=== PATIENT | female | born 1990 | race Caucasian/White ===

== ENCOUNTER → 2019-12-06 | Outpatient (CLI) | payer OTHER, SELFPAY ==
[2019-12-06 10:12] VITALS: BMI 21.8
[2019-12-13 17:48] LABS: HPV APTIMA, High Risk Negative (Negative); HPV Reflexed? YES, CHARGE PATIENT
== END | disposition home or self-care (01) ==
LOC: LABSPEC 12:44
PROVIDERS: PCP Family Medicine; Visit Provider Obstetrics & Gynecology
DX: Z12.4 Encounter for screening for malignant neoplasm of cervix (principal)
CPT/HCPCS: 87624; 88175; G0145

== ENCOUNTER → 2020-02-28 15:23 | Outpatient (CLI) | payer OTHER, SELFPAY ==
[2020-02-28 14:27] VITALS: BMI 23.5
[2020-02-28 15:45] LABS: Absolute Lymphocyte Count 3.03 X10^3/uL (0.83-4.51); Basophil# 0.03 X10^3/uL; Basophil% 0.3 % (0-1); Eosinophil# 0.05 X10^3/uL; Eosinophils% 0.5 % (0-5); Hematocrit 40.7 % (37-47); Lymphocyte # 3.03 X10^3/ul (4.0); Lymphocyte % 31.2 % (19-41); Mean Corp Hgb Conc 34.4 g/dL (32-36); Mean Corpuscular Hgb 29.2 pg (27.0-32.0); Mean Corpuscular Volume 84.8 fL (81-99); Mean Platelet Vol. 10.1 fl (6.2-12.0); Monocyte# 0.58 X10^3/uL; NRBC Flagged by Analyzer 0 % (0-5); Neutrophil % 61.7 % (47-70); Platelet Count 289 K/mm3 (150-450); RBC Distribution Width CV 12.2 % (11.6-14.6); RBC Distribution Width SD 37.5 fl (35.1-43.9); White Blood Count 9.7 K/mm3 (4.4-11.0)
[2020-02-28 17:04] LABS: HIV - WCH Non-Reactive (Nonreactive); Hepatitis B Surface Antigen Non-Reactive (Nonreactive); Hepatitis C Antibody Non-Reactive (Nonreactive)
[2020-02-28 17:34] LABS: Amphetamine Urine VISTA NEGATIVE (<1000 ng/mL); Barbiturate Urine VISTA NEGATIVE (< 200 ng/mL); Benzodiazepine Urine VISTA NEGATIVE (< 200 ng/mL); Cocaine Urine VISTA NEGATIVE (< 300 ng/mL); Ecstacy Urine VISTA NEGATIVE (< 500 ng/mL); Methadone Urine VISTA NEGATIVE (< 300 ng/mL); PCP Urine VISTA NEGATIVE (< 25 ng/mL); THC Urine VISTA NEGATIVE (< 50 ng/mL); Vista UDS pH Range 6
[2020-02-29 10:16] LABS: Rubella IgG Reactive (Nonreactive)
[2020-03-04 03:06] LABS: Chlamydia By Nucleic Acid AMP Negative (Negative)
[2020-03-04 12:07] LABS: Gonococcus By Nucleic Acid AMP Negative (Negative)
[2020-03-06 02:10] LABS: Rapid Plasmin Reagin (RPR) NONREACTIVE (NONREACTIVE)
== END ==
PROVIDERS: PCP Family Medicine; Referring Provider Obstetrics & Gynecology; Visit Provider Obstetrics & Gynecology
DX: Z34.00 Encounter for supervision of normal first pregnancy, unspecified trimester (principal)
CPT/HCPCS: 36415; 80307; 85025; 86592; 86703; 86762; 86803; 86850; 86900; 86901; 87086; 87088; 87340; 87491; 87591

== ENCOUNTER → 2020-06-16 09:19 | Outpatient (CLI) | payer OTHER, SELFPAY ==
[2020-05-30 09:02] VITALS: BMI 25.9
[2020-06-16 09:40] LABS: Absolute Lymphocyte Count 2.37 X10^3/uL (0.83-4.51); Absolute Neutrophil Count 8.6 X10^3/uL (2.0-7.7); Basophil# 0.04 X10^3/uL; Basophil% 0.3 % (0-1); Eosinophil# 0.07 X10^3/uL; Eosinophils% 0.6 % (0-5); Hematocrit 38.7 % (37-47); Hemoglobin 13.1 g/dL (12.0-15.0); Lymphocyte # 2.37 X10^3/ul (4.0); Lymphocyte % 20.2 % (19-41); Mean Corp Hgb Conc 33.9 g/dL (32-36); Mean Corpuscular Volume 85.6 fL (81-99); Mean Platelet Vol. 9.8 fl (6.2-12.0); Monocyte# 0.63 X10^3/uL; Monocyte% 5.4 % (0-10); NRBC Flagged by Analyzer 0 % (0-5); Neutrophil # 8.56 X10^3/uL (2.7-7.7); Neutrophil % 72.9 % (47-70); Platelet Count 288 K/mm3 (150-450); RBC Distribution Width CV 13.2 % (11.6-14.6); RBC Distribution Width SD 40.9 fl (35.1-43.9); Red Blood Count 4.52 M/mm3 (4.2-5.4); White Blood Count 11.7 K/mm3 (4.4-11.0)
[2020-06-16 09:50] LABS: Glucose Challenge Gest 1H 50g 112 mg/dL (70-140)
== END ==
PROVIDERS: PCP Family Medicine; Referring Provider Obstetrics & Gynecology; Visit Provider Obstetrics & Gynecology
DX: Z34.00 Encounter for supervision of normal first pregnancy, unspecified trimester (principal)
CPT/HCPCS: 36415; 82950; 85025

== ENCOUNTER 2020-08-07 23:19 | Inpatient (IN) | payer OTHER, SELFPAY ==
[2020-07-30 08:58] VITALS: BMI 28.5
[2020-08-07 22:34] VITALS: BMI 29.4
[2020-08-07 22:44] VITALS: BP 121/76; PULSE 83; TEMP 36.4
[2020-08-07 23:07] LABS: ROM Internal Control Test YES-OK TO RESULT pt. (Internal QC)
[2020-08-07 23:08] LABS: ROM Patient Test POSITIVE (Negative)
[2020-08-07] MEDS: Lactated Ringers 500 ML IV.SOLN. 1000 ML IV (23:35)
--- NOTE | 2020-08-07 23:56 | PCM.HPOB.BLA ---
- Problem List (1) premature rupture of membranes (PPROM) with unknown onset of labor Status: Acute (2) 33 weeks gestation of Status: Acute Comment: COVID test ordered 08/06/20 (3) ASCUS of cervix with negative high risk HPV Status: Acute Comment: repeat pap in 3 years (4) Congenital hip dysplasia Status: Acute Comment: arthroscopy done on b/l hips. Has normal range of motion. (5) Exercise-induced asthma Status: Acute Comment: Uses albuterol prn. 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: No Is patient in pain?: No Allergies No Known Allergies Allergy (Verified 07/30/20 08:58) Medications albuterol sulfate 90 mcg/actuation aerosol inhaler 1 puff INHALATION ONCE 12/06/19 [History Confirmed 07/30/20] montelukast 10 mg tablet 10 mg PO DAILY 12/06/19 [History Confirmed 07/30/20] multivitamin no.47-iron fum 27 mg-folate no.1 1 mg-dha 300 mg capsule cap PO 02/20/20 [History Confirmed 07/30/20] Last Menstral Period: 12/19/19 Zika: Zika virus screening: Negative : No PFSH PFSH Medical History Exercise-induced asthma (Acute) Congenital hip dysplasia (Acute) Surgical History H/O shoulder surgery (Acute) History of arthroscopy (Acute) Family History Father Thyroid disorder Social History (Updated 07/30/20 @ 09:[address] 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 Patient states she has had increased discharge since this morning. Since Tuesday she has had symptoms of viral gastroenteritis that have been improving but cramping started increasing tonight. She had a small amount of blood present upon wiping but no persistent bleeding. She feels good movement and is having contractions. OB Visit TESSIE Calculator Estimated Delivery Date Method Current WG Current Estimate 09/24/20 LMP (Certain) 32w 0d Other Estimates 09/20/20 Ultrasound #1 32w 4d Expected Delivery Route/Plan Labor Preferences- CB/BF classes: done labor support person: Wes labor intervention preferences: open to standard interventions pain management options preferred: try natural, but open to epidural cut cord/dad catch: cord, maybe delivery : yes PP control planned: OCPs discussed possible routes of delivery and associated risks: discussed possible delivery modalities and possible indications for each including R/B/A of , VAVD, FAVD, and CS. questions answered. special requests: none Specific Issue/Plans flu vaccine: yes tdap vaccine: yes rhogam: no LARC form signed: yes movement and labor precautions reviewed. Problem list reviewed and updated with the most current plan of care details and appropriate orders placed. Relevant counseling for the gestational age provided. Continue routine care and follow up unless otherwise noted in visit notes/problem list details Initial Weight: 120 lb Date EGA Weight BP Urine Prot Glucose FHR FuHt Pres Dilation Effaced St Visit Note 02/28/20 10w 1d 124 lb 8 oz (+4 lb 8 oz) 108/68 168 GP - CRL 38.2mm consistent with LMP. 03/31/20 14w 5d 126 lb 2 oz (+6 lb 2 oz) 104/64 Negative Negative 145 GP - PRR. No cramping or bleeding. Discussed medications for constipation. Going to [facility] 04/23 - visit moved up to week before she leaves. GP - PRR. No cramping or bleeding. Discussed medications for constipation. Going to [facility] 04/23 - visit moved up to week before she leaves. Nausea improved. 04/16/20 17w 0d 131 lb 2 oz (+11 lb 2 oz) 120/74 Negative Negative 145 GP - no cramping or bleeding. +FM. Going on vacation to [facility] next week. Anatomy US scheduled for 05/19/20 21w 5d 135 lb 8 oz (+15 lb 8 oz) 100/70 Negative Negative 155 GP - no LOF, VB, DFM, ctx. Having a girl! Name surprise. Anatomy scan normal. 05/30/20 23w 2d 137 lb 4 oz (+17 lb 4 oz) 112/70 Negative Negative 145 GP - no LOF, VB, DFM, ctx. Problem visit for LUQ pain - likely nerve pain related to stretching ribs. Discussed supportive measures. 06/16/20 25w 5d 138 lb (+18 lb) 102/76 Negative Negative 135 25 GP - no LOF, VB, DFM, ctx. Passed GCT. Hb normal. 07/03/20 28w 1d 146 lb (+26 lb) 112/64 Negative Negative 148 28 MH_No VB, LOF. Good FM. tdap, larc. 07/17/20 30w 1d 148 lb (+28 lb) 110/60 Negative Negative 140 30 Cephalic SM- no vb lof good fm no regular ctx 07/30/20 32w 0d 151 lb (+31 lb) 102/80 Negative Negative 125 32 GP - no LOF, VB, DFM, ctx. Discussed labor preferences and routes of delivery. GP - no LOF, VB, DFM, ctx. Discussed labor preferences and routes of delivery. Baby shower 08/16. ACOG First Trimester First Trimester: Desire for , Alcohol, Tobacco Cessation, Illicit/Recreational Drug/Substance Use, Intimate Partner Violence, Barriers to care, Unstable Housing, Communication Barriers, Environmental/Work Hazards, Anticipated Course of Care, Toxoplasmosis Precations, Use of Any medications, Sexual activity, Exercise, Dental Care, Sauna/Hot tub use, Seat Belt use, Childbirth classes/Hospital facilities, Travel, Indications for US and Screening for Aneuploidy; discussed Second Trimester Second Trimester: Signs and Symptoms of Labor, Selecting a care provider, Reproductive Life Planning, Care Planning, Depression/Anxiety and Intimate Partner Violence; discussed Tobacco Cessation Diagnostics Diagnostics Diagnostics Blood Type O POSITIVE 02/28/20 Antibody Screen NEGATIVE 02/28/20 Glucose 1 Hr 50 gm 112 mg/dL (70-140) 06/16/20 HIV 1&2 Antibody Non-Reactive (Nonreactive) 02/28/20 Rubella IgG Antibody Reactive (Nonreactive) 02/28/20 Hgb 13.1 g/dL (12.0-15.0) 06/16/20 Hct 38.7 % (37-47) 06/16/20 RPR NONREACTIVE (NONREACTIVE) 02/28/20 Chlamydia DNA (MARCELINA) Negative (Negative) 02/28/20 N.gonorrhoeae DNA (MARCELINA) Negative (Negative) 02/28/20 Details: HIV: Urine Culture: Sequential Screen: NIPT Screen: ROS Const Reports system reviewed and no additional complaints, except as documented Card Reports system reviewed and no additional complaints, except as documented Resp Reports system reviewed and no additional complaints, except as documented GI Reports system reviewed and no additional complaints, except as documented, Reports nausea Reports system reviewed and no additional complaints, except as documented Musc Reports system reviewed and no additional complaints, except as documented all other systems reviewed and negative Exam Const General: cooperative, healthy appearing, comfortable [facility] Head: normal to inspection Nose: external nose normal Face and sinus: normal facial exam Neck Neck: normal visual inspection, full ROM, no lymphadenopathy Thyroid: thyroid normal Chest Chest palpation & inspection: normal inspection of the chest Resp Effort & Inspection: normal respiratory effort GI Inspection: normal to inspection Palpation: soft, other (gravid uterus) Other: infant vertex and appropriate size for gestational age Other: Cervical Exam: 380/-2 Extrem General: pedal edema Results POC Urinalysis 2 Dip (Clinic) Office Urine Glucose Negative Last Edit by Nevaeh Jensen on 07/30/20 09:13 Office Urine Protein Negative Last Edit by Nevaeh Jensen on 07/30/20 09:13 Assessment & Plan Problems 1. History of tetanus, diphtheria, and acellular pertussis booster vaccination (Tdap) Z92.29 07/03/20 2. Encounter for supervision of normal first in third trimester Z34.03 PRR TESSIE 09/24/20 girl (surprise name) Spouse: Wes 3. 32 weeks gestation of Z3A.32 declines NIPT, carrier and NTD; NL anatomy 4. Exercise-induced asthma J45.990 Uses albuterol prn. 5. Congenital hip dysplasia Q65.89 arthroscopy done on b/l hips. Has normal range of motion. 6. ASCUS of cervix with negative high risk HPV R87.610 repeat pap in 3 years 29-year-old at 33 weeks 1 day presents with P PROM Admit and administer IV antibiotics of ampicillin azithromycin, Celestone given for prematurity, CBC type and screen UA and culture ordered. Recent GI illness likely viral. Will give Procardia for tocolysis unless make cervical change to 4 cm or more. Expectant management, she would may change fashion 5 cm. Consult pediatrics in the morning for prematurity. Orders UPDATE- I have seen the patient and performed any clinically relevant updates to the history and physical exam. Lucille Jacob MD
[2020-08-08] VITALS (48 sets, daily range): BP systolic 100–130; BP diastolic 58–81; PULSE 67–110; TEMP 36.4–37.3; O2SAT 93–100
[2020-08-08] MEDS: Azithromycin 250 MG Tablet 1000 MG PO (00:03)
[2020-08-08 00:07] LABS: Absolute Lymphocyte Count 3.13 X10^3/uL (0.83-4.51); Absolute Neutrophil Count 8.3 X10^3/uL (2.0-7.7); Basophil# 0.04 X10^3/uL; Basophil% 0.3 % (0-1); Eosinophil# 0.07 X10^3/uL; Eosinophils% 0.6 % (0-5); Hematocrit 37.6 % (37-47); Hemoglobin 12.6 g/dL (12.0-15.0); Lymphocyte # 3.13 X10^3/ul (4.0); Lymphocyte % 24.7 % (19-41); Mean Corp Hgb Conc 33.5 g/dL (32-36); Mean Corpuscular Hgb 27.7 pg (27.0-32.0); Mean Corpuscular Volume 82.6 fL (81-99); Mean Platelet Vol. 11.2 fl (6.2-12.0); Monocyte# 1.12 X10^3/uL; Monocyte% 8.8 % (0-10); NRBC Flagged by Analyzer 0 % (0-5); Neutrophil # 8.26 X10^3/uL (2.7-7.7); Platelet Count 273 K/mm3 (150-450); RBC Distribution Width CV 12.7 % (11.6-14.6); Red Blood Count 4.55 M/mm3 (4.2-5.4); White Blood Count 12.7 K/mm3 (4.4-11.0)
[2020-08-08] MEDS: Betamethasone/Betamethasone 30 MG/5 ML Vial 12 MG IM (00:16)
[2020-08-08 00:26] LABS: Color, Urine Yellow (Yellow); Glucose, Dipstick Normal (Normal); Ketone-Dipstick Negative (Negative); Leukocyte Esterase-Dipstick 100 /ul (Negative); Nitrite-Dipstick Negative (Negative); Occult Blood-Urine 25 /ul (Negative); Protein-Dipstick Negative (Negative); Urine Bilirubin Dipstick Negative (Negative); Urine Clarity Clear (Clear); Urine Urobilinogen Normal (Normal)
[2020-08-08] MEDS: NIFEdipine 10 MG Capsule 30 MG PO (00:35)
[2020-08-08] MEDS: 0.9% Saline Lock 10 ML Syringe IV ×4 (01:33→10:26)
[2020-08-08] MEDS: Acetaminophen 500 MG Tablet PO ×2 (04:37→13:03)
[2020-08-08] MEDS: NIFEdipine 10 MG Capsule PO ×2 (04:37→09:00)
[2020-08-08] MEDS: Lactated Ringers 1,000 ML 999 ML IV ×2 (07:32→10:30)
--- NOTE | 2020-08-08 09:17 | US_ITS ---
STUDY: SECOND AND THIRD TRIMESTER OBSTETRICAL ULTRASOUND - LIMITED REASON FOR EXAM: Female, 29 years old SROM 33.2 weeks -- check fluid and size LMP: Unknown. PRIOR ULTRASOUND: None. TECHNIQUE: Transabdominal TECHNICAL QUALITY: Adequate. FINDINGS: There is a single intrauterine fetus. The fetus is in a cephalic presentation. There is demonstrated cardiac activity with a heart rate of 140 bpm. There is a normal amniotic fluid volume. The largest amniotic fluid pocket measures 6.9 cm. The amniotic fluid index (JESUS) is 12.0 cm. The placenta is posterior in location and is not low lying. There are Grade 1 placental changes. BIOMETRY: BPD: 8.4 cm: 33 weeks, 4 days HC: 30.5 cm: 33 weeks, 6 days AC: 29.8 cm: 33 weeks, 5 days FL: 6.5 cm: 33 weeks, 4 days age by current US: 33 weeks, 4 days. TESSIE by current US: September 22, 2020. Estimated weight: 2285 grams, +/- 343 grams US/OB Limited (No Biometrics) IMPRESSION: Single intrauterine gestation 33 weeks 4 days with estimated due date September 22, 2020. Estimated weight 2285 g. Electronically Signed: Rahul Kearns MD at 10:54 EDT , Service support ,
--- NOTE | 2020-08-08 09:54 | PCM.PN.OB ---
Patient Problems: Active and Suspected Problems (Last Reviewed 07/30/20 @ 08:58 by Nevaeh Jensen) premature rupture of membranes (PPROM) with unknown onset of labor (Acute) 33 weeks gestation of (Acute) COVID test ordered 08/06/20 History of tetanus, diphtheria, and acellular pertussis booster vaccination (Tdap) (Acute) 07/03/20 Supervision of normal first (Acute) PRR TESSIE 09/24/20 girl (surprise name) Spouse: Wes (Acute) declines NIPT, carrier and NTD; NL anatomy Exercise-induced asthma (Acute) Uses albuterol prn. Congenital hip dysplasia (Acute) arthroscopy done on b/l hips. Has normal range of motion. ASCUS of cervix with negative high risk HPV (Acute) repeat pap in 3 years Subjective: patient made cervical change, will manage expectantly, stop procardia continue antibiotics - Physical Exam Vitals/I&O's: Vital Signs Temp Pulse BP Pulse Ox 98.4 F 72 104/68 98 08/08/20 07:34 08/08/20 08:41 08/08/20 08:41 08/08/20 08:41 Weight: 155 lb 13.869 oz Body Mass Index (BMI) 29.4 Intake and Output for Last 24 Hours 08/06/20 08/07/20 08/08/20 23:59 23:59 23:59 Intake Total 1320 / 1320 Output Total 1050 / 1050 Balance 270 / 270 General: Alert, Oriented x3 Microbiology Past 72 Hours 08/07/20 23:35 Mucosa - Nose SARS-CoV-2 Antigen (Rapid) - Final Laboratory Results 08/07/20 22:45: Vag Amniotic Fld Detect POSITIVE H 08/07/20 23:35: WBC 12.7 H, RBC 4.55, Hgb 12.6, Hct 37.6, MCV 82.6, MCH 27.7, MCHC 33.5, RDW Std Deviation 38.0, RDW Coeff of [place] 12.7, Plt Count 273, MPV 11.2, Immature Gran % (Auto) 0.600, Neut % (Auto) 65.0, Lymph % (Auto) 24.7, [place] % (Auto) 8.8, Eos % (Auto) 0.6, Baso % (Auto) 0.3, Absolute Neuts (auto) 8.3 H, Absolute Lymphs (auto) 3.13, Nucleated RBC % 0 08/07/20 23:35: Blood Type O POSITIVE, Antibody Screen NEGATIVE 08/08/20 00:10: Urine Color Yellow, Urine Clarity Clear, Urine pH 7.0, Ur Specific [place] 1.010, Urine Protein Negative, Urine Glucose (UA) Normal, Urine Ketones Negative, Urine Occult Blood 25 H, Urine Nitrite Negative, Urine Bilirubin Negative, Urine Urobilinogen Normal, Ur Leukocyte Esterase 100 H Current Medications Acetaminophen (Acetaminophen 500 Mg Tablet) 500 - 1,000 mg PO Q6H PRN PRN PRN Reason: Pain Score 1-3 Last Admin: 08/08/20 04:37 Dose: 1,000 mg Documented by: Al Hydroxide/Mg Hydroxide (Mag Hydrox/Al Hydrox/Simeth 30 Ml Udc) 15 - 30 ml PO Q4H PRN PRN PRN Reason: INDIGESTION Betamethasone Acet/Betameth SodPhos (Betamethasone/Betamethasone 30 Mg/5 Ml Vial) 12 mg IM Q24H [facility] Stop: 08/08/20 23:16 Last Admin: 08/08/20 00:16 Dose: 12 mg Documented by: Citric Acid/Sodium Citrate (Sodium Citrate/Citric Acid 30 Ml Udc) 30 ml PO X1 PRN PRN Reason: Section Fentanyl Citrate (Fentanyl 100 Mcg/2 Ml Ampul) 25 - 50 mcg IV Q2H PRN PRN PRN Reason: Pain Score 4-10 Ampicillin Sodium 2 gm/ Sodium (Chloride) 100 mls @ 150 mls/hr IV Q6 [facility] Stop: 08/09/20 18:39 Last Infusion: 08/08/20 07:16 Dose: Infused Documented by: Lactated Ringer's () 500 mls @ 999 mls/hr IV .Q31M PRN PRN Reason: Epidural Lactated Ringer's () 500 mls @ 999 mls/hr IV .Q31M PRN PRN Reason: Corrective Measures Lactated Ringer's () 1,000 mls @ 50 mls/hr IV .Q20H [facility] Last Admin: 08/08/20 02:02 Dose: Not Given Documented by: Nifedipine (Nifedipine 10 Mg Capsule) 10 mg PO Q4H [facility] Last Admin: 08/08/20 09:00 Dose: 10 mg Documented by: Ondansetron HCl (Ondansetron 4 Mg/2 Ml Vial) 4 mg IV Q4H PRN PRN PRN Reason: NAUSEA Prochlorperazine Edisylate (Prochlorperazine 10 Mg/2 Ml Vial) 10 mg IV Q6H PRN PRN PRN Reason: NAUSEA Sodium Chloride (0.9% Saline Lock 10 Ml Syringe) 10 ml IV PRN PRN PRN Reason: flush Last Admin: 08/08/20 08:37 Dose: 10 ml Documented by: Sodium Chloride (0.9% Saline Lock 10 Ml Syringe) 10 - 40 ml IV X1 PRN PRN Reason: SALINE FLUSH Last Admin: 08/08/20 06:33 Dose: 10 ml Documented by: Medical Necessity - Tobacco Use Smoking Status: Never smoker Assessment/Plan All Active Problems (Last Reviewed 07/30/20 @ 08:58 by Nevaeh Jensen) premature rupture of membranes (PPROM) with unknown onset of labor (Acute) 33 weeks gestation of (Acute) History of tetanus, diphtheria, and acellular pertussis booster vaccination (Tdap) (Acute) Supervision of normal first (Acute) (Acute) Exercise-induced asthma (Acute) Congenital hip dysplasia (Acute) ASCUS of cervix with negative high risk HPV (Acute) Pre-conception counseling (Resolved) plan exp management for , epi if desired. continue antibiotics, give second dose of celestone if labors 24 hours
[2020-08-08] MEDS: fentaNYL 100 MCG/2 ML Ampul IV ×2 (10:25→17:51)
[2020-08-08] MEDS: Lactated Ringers 1,000 ML 50 ML IV (11:30)
[2020-08-08] MEDS: Lactated Ringers 1,000 ML 200 ML IV (16:34)
[2020-08-08] MEDS: Lactated Ringers 500 ML 999 ML IV (19:38)
[2020-08-08] MEDS: Ondansetron 4 MG/2 ML Vial IV (19:39)
[2020-08-08] MEDS: Oxytocin 30 units/NS 500 ml 30 UNITS/500 ML IV.SOLN 334 UNITS IV (20:44)
--- NOTE | 2020-08-08 21:08 | PCM.OPRPT ---
Problem List (1) premature rupture of membranes (PPROM) with unknown onset of labor Status: Acute (2) 33 weeks gestation of Status: Acute Comment: COVID test ordered 08/06/20 (3) ASCUS of cervix with negative high risk HPV Status: Acute Comment: repeat pap in 3 years (4) Congenital hip dysplasia Status: Acute Comment: arthroscopy done on b/l hips. Has normal range of motion. (5) Exercise-induced asthma Status: Acute Comment: Uses albuterol prn. (6) History of tetanus, diphtheria, and acellular pertussis booster vaccination (Tdap) Status: Acute Comment: 07/03/20 (7) Status: Acute Qualifiers: Comment: declines NIPT, carrier and NTD; NL anatomy (8) Supervision of normal first Status: Acute Qualifiers: Comment: PRR TESSIE 09/24/20 girl (surprise name) Spouse: Wes Vaginal Delivery Maternal Presentation: Active Labor, Spontaneous Rupture of Membranes 29 yo @ 33w1d presents with PPROM Medical Reason for Induction: Premature Rupture of Membranes Amniotic Fluid Description: Clear Final TESSIE: 09/24/20 Gestational age: 33 Weeks and 2 Days Date of Procedure: 08/08/20 Pre-Operative Diagnosis: pprom Post-Operative Diagnosis: same Surgery/ Procedure Performed: Spontaneous Vaginal Delivery Type of Anesthesia: Epidural Description of Procedure: Patient began pushing and delivered the head in the JESUS presentation. The head was delivered atraumatically . The anterior and posterior shoulders delivered without complication followed by the rest of the infant and the infant was placed on the maternal abdomen. Delayed cord clamping was employed for approximately 60 seconds. Cord was clamped and cut and gentle traction was applied to the cord and the placenta delivered spontaneously immediately following it was noted to be intact with three-vessel cord. The perineum and vagina were inspected and noted to have a small 1st degree perineal laceration that was repaired in the usual fashion. EBL was 100 cc. Patient and infant tolerated delivery well. Presentation: JESUS Placental Delivery Description: Spontaneous Placenta Disposition: [facility] Codes - Urinary/Genital Urinary/Genital CPT Codes: 83356 Vaginal Delivery [facility]
[2020-08-08] MEDS: Naproxen 250 MG Tablet 500 MG PO (21:41)
--- NOTE | 2020-08-08 21:58 | NURSING ---
Elicia Quintero, IBCLC in to go over pumping with pt while being from who is in [facility].
--- NOTE | 2020-08-08 23:36 | NURSING ---
Mother asking to go into nursery to see [facility] baby, [facility] reports they are not ready for parents to come in yet but baby is doing well
[2020-08-09 01:24] VITALS: BP 116/70; PULSE 85; RESP 18; TEMP 37
[2020-08-09 04:25] VITALS: BP 105/62; PULSE 80; RESP 16; TEMP 36.5
[2020-08-09] MEDS: Naproxen 250 MG Tablet 500 MG PO ×2 (07:16→15:32)
[2020-08-09] MEDS: Dibucaine 30 GM Tube 1 APPLIC TOPICAL (07:17)
--- NOTE | 2020-08-09 07:23 | PCM.PN.OB ---
Patient Problems: Active and Suspected Problems (Last Reviewed 07/30/20 @ 08:58 by Nevaeh Jensen) premature rupture of membranes (PPROM) with unknown onset of labor (Acute) 33 weeks gestation of (Acute) COVID test ordered 08/06/20 History of tetanus, diphtheria, and acellular pertussis booster vaccination (Tdap) (Acute) 07/03/20 Supervision of normal first (Acute) PRR TESSIE 09/24/20 girl (surprise name) Spouse: Wes (Acute) declines NIPT, carrier and NTD; NL anatomy Exercise-induced asthma (Acute) Uses albuterol prn. Congenital hip dysplasia (Acute) arthroscopy done on b/l hips. Has normal range of motion. ASCUS of cervix with negative high risk HPV (Acute) repeat pap in 3 years Subjective: Patient doing well without complaints. Tolerating PO. Ambulating and voiding without difficulty. pumping well. Denies chest pain, shortness of breath, calf pain/swelling, fevers, chills, lightheadedness. - Physical Exam Vitals/I&O's: Vital Signs Temp Pulse Resp BP Pulse Ox 97.7 F L 80 16 105/62 98 08/09/20 04:25 08/09/20 04:25 08/09/20 04:25 08/09/20 04:25 08/08/20 21:11 Oxygen Delivery Method Room Air Weight: 155 lb 13.869 oz Body Mass Index (BMI) 29.4 Intake and Output for Last 24 Hours 08/07/20 08/08/20 08/09/20 23:59 23:59 23:59 Intake Total 5820.11 / 5820.11 Output Total 2850 / 3350 900 / 900 Balance 2970.11 / 2470.11 -900 / -900 General: Alert, Oriented x3 Microbiology Past 72 Hours 08/07/20 23:35 Mucosa - Nose SARS-CoV-2 Antigen (Rapid) - Final Current Medications Acetaminophen (Acetaminophen 500 Mg Tablet) 1,000 mg PO Q8H PRN PRN PRN Reason: Pain Score 1-3 Bisacodyl (Bisacodyl 10 Mg Suppository) 10 mg RC UD PRN PRN Reason: If no BM Dibucaine (Dibucaine 30 Gm Tube) 1 applic TOPICAL TID PRN PRN; Protocol PRN Reason: Discomfort Last Admin: 08/09/20 07:17 Dose: 1 tube Documented by: Hydrocortisone (Hydrocortisone 2.5% Crm) 1 applic TOPICAL TID PRN PRN; Protocol PRN Reason: Discomfort Methylergonovine Maleate (Methylergonovine 0.2 Mg/Ml Ampul) 0.2 mg IM X1 PRN PRN Reason: Excess bleeding/uterine atony Naproxen (Naproxen 250 Mg Tablet) 500 mg PO Q8H PRN PRN PRN Reason: Pain Score 1-3 Last Admin: 08/09/20 07:16 Dose: 500 mg Documented by: Ondansetron HCl (Ondansetron 4 Mg/2 Ml Vial) 4 mg IV Q4H PRN PRN PRN Reason: Nausea Oxycodone HCl (Oxycodone 5 Mg Tablet) 5 - 10 mg PO Q4H PRN PRN PRN Reason: Pain Score 4-10 Senna/Docusate Sodium (Senna/Docusate Sodium 1 Tablet) 1 - 2 tablet PO DAILY PRN PRN PRN Reason: Constipation Simethicone (Simethicone 80 Mg Tablet) 80 mg PO PCHS PRN PRN Reason: Indigestion/Stomach pain Sodium Chloride (0.9% Saline Lock 10 Ml Syringe) 5 - 15 ml IV UD PRN PRN Reason: SALINE FLUSH Medical Necessity - Tobacco Use Smoking Status: Never smoker Assessment/Plan All Active Problems (Last Reviewed 07/30/20 @ 08:58 by Nevaeh Jensen) premature rupture of membranes (PPROM) with unknown onset of labor (Acute) 33 weeks gestation of (Acute) History of tetanus, diphtheria, and acellular pertussis booster vaccination (Tdap) (Acute) Supervision of normal first (Acute) (Acute) Exercise-induced asthma (Acute) Congenital hip dysplasia (Acute) ASCUS of cervix with negative high risk HPV (Acute) Pre-conception counseling (Resolved) s/p PPD # 1 1. routine post delivery care 2. breast feeding- support given 3. rh positive 4. rubella immune
--- NOTE | 2020-08-09 07:28 | DCINST_ITS ---
Discharge Diet: No Restrictions Discharge Activity: Return to Normal Activity, May not drive while taking narcotic pain medications., May Shower May resume sexual activity in: 4-6 weeks Call your doctor if your incision/area has: Continuous Slow Oozing, Sudden Increased Bleeding, Increased Pain/ Swelling, Increased Redness, Foul Smelling Discharge Additional Instructions: If you experience any of the following, contact your healthcare provider. * Bleeding that soaks a pad every hour for 2 hours * Fever 100.4 or higher * Unrelieved incision or abdominal pain * Swelling, redness, discharge or bleeding from your incision or episiotomy site * Your incision begins to separate * Problems urinating (including inability to urinate or burning while urinating). * Visual changes * Severe headache * Flu-like symptoms * Pain or redness in one of both of your breasts * Pain, warmth, tenderness or swelling in your legs, especially the calf area * Frequent nausea and vomiting * Symptoms of depression or anxiety If you experience any of the following, call 911 or go to the nearest Emergency Room. * Chest pain * Problems breathing * Seizure activity * Partial or complete paralysis of a body part, slurred speech, weakness or drooping of the face, or a sudden inability to walk or hold your balance Allergies/Adverse Reactions: Allergies No Known Allergies Allergy (Verified 08/07/20 22:35) Medications to take at Discharge albuterol sulfate 90 mcg/actuation aerosol inhaler 1 puff INHALATION ONCE 12/06/19 montelukast 10 mg tablet 10 mg PO DAILY 12/06/19 multivitamin no.47-iron fum 27 mg-folate no.1 1 mg-dha 300 mg capsule 1 cap PO DAILY 02/20/20 Naproxen [Naprosyn] 250 - 500 mg PO Q8H PRN PRN #30 tab 08/09/20 The following prescriptions were given: Naproxen [Naprosyn] 250 - 500 mg PO Q8H PRN PRN #30 tab PRN Reason: MILD PAIN Transmission Status: Pending to [facility] Please Follow Up With: Lucille Jacob MD - [phone] When: Call to make an appointment with your doctor in 6 weeks. If you had elevated Blood pressure or 4th degree laceration you will need to be seen in 2 weeks. Primary Care Physician: Brooklyn Meier MD [Primary Care Provider] - Test Results: Test results from this visit will be discussed in further detail at your follow- up appointment, if applicable.
[2020-08-09 08:00] VITALS: BP 113/69; PULSE 72; RESP 18; TEMP 36.6; O2SAT 98
[2020-08-09 12:48] VITALS: BP 100/73; PULSE 70; RESP 16; TEMP 36.6; O2SAT 100
[2020-08-09 16:00] VITALS: BP 110/78; PULSE 71; RESP 14; TEMP 36.9
[2020-08-09 19:59] VITALS: BP 113/70; PULSE 75; RESP 16; TEMP 37.2; O2SAT 95
[2020-08-10 02:35] VITALS: BP 108/75; PULSE 68; RESP 16; TEMP 36.3; O2SAT 98
[2020-08-10] MEDS: Naproxen 250 MG Tablet 500 MG PO (02:43)
[2020-08-10 07:48] VITALS: BP 112/82; PULSE 72; RESP 15; TEMP 37.1
--- NOTE | 2020-08-10 08:42 | PCM.PN.OB ---
Patient Problems: Active and Suspected Problems (Last Reviewed 07/30/20 @ 08:58 by Nevaeh Jensen) premature rupture of membranes (PPROM) with unknown onset of labor (Acute) 33 weeks gestation of (Acute) COVID test ordered 08/06/20 History of tetanus, diphtheria, and acellular pertussis booster vaccination (Tdap) (Acute) 07/03/20 Supervision of normal first (Acute) PRR TESSIE 09/24/20 girl (surprise name) Spouse: Wes (Acute) declines NIPT, carrier and NTD; NL anatomy Exercise-induced asthma (Acute) Uses albuterol prn. Congenital hip dysplasia (Acute) arthroscopy done on b/l hips. Has normal range of motion. ASCUS of cervix with negative high risk HPV (Acute) repeat pap in 3 years Subjective: Patient doing well without complaints. Tolerating PO. Ambulating and voiding without difficulty. pumping well. Denies chest pain, shortness of breath, calf pain/swelling, fevers, chills, lightheadedness. - Physical Exam Vitals/I&O's: Vital Signs Temp Pulse Resp BP Pulse Ox 98.8 F 72 15 112/82 H 98 08/10/20 07:48 08/10/20 07:48 08/10/20 07:48 08/10/20 07:48 08/10/20 02:35 Oxygen Delivery Method Room Air Weight: 155 lb 13.869 oz Body Mass Index (BMI) 29.4 Intake and Output for Last 24 Hours 08/08/20 08/09/20 08/10/20 23:59 23:59 23:59 Intake Total 5820.11 / 5820.11 Output Total 2850 / 3350 900 / 900 Balance 2970.11 / 2470.11 -900 / -900 General: Alert, Oriented x3 Microbiology Past 72 Hours 08/07/20 23:35 Genital vaginal Group B Streptococcus Culture - Final Group B Beta Streptococcus is not isolated. 08/08/20 00:10 Urine, Clean Catch Urine Culture - Final Mixed Gram Positive Organisms 08/07/20 23:35 Mucosa - Nose SARS-CoV-2 Antigen (Rapid) - Final Current Medications Acetaminophen (Acetaminophen 500 Mg Tablet) 1,000 mg PO Q8H PRN PRN PRN Reason: Pain Score 1-3 Bisacodyl (Bisacodyl 10 Mg Suppository) 10 mg RC UD PRN PRN Reason: If no BM Dibucaine (Dibucaine 30 Gm Tube) 1 applic TOPICAL TID PRN PRN; Protocol PRN Reason: Discomfort Last Admin: 08/09/20 07:17 Dose: 1 tube Documented by: Hydrocortisone (Hydrocortisone 2.5% Crm) 1 applic TOPICAL TID PRN PRN; Protocol PRN Reason: Discomfort Methylergonovine Maleate (Methylergonovine 0.2 Mg/Ml Ampul) 0.2 mg IM X1 PRN PRN Reason: Excess bleeding/uterine atony Naproxen (Naproxen 250 Mg Tablet) 500 mg PO Q8H PRN PRN PRN Reason: Pain Score 1-3 Last Admin: 08/10/20 02:43 Dose: 500 mg Documented by: Ondansetron HCl (Ondansetron 4 Mg/2 Ml Vial) 4 mg IV Q4H PRN PRN PRN Reason: Nausea Oxycodone HCl (Oxycodone 5 Mg Tablet) 5 - 10 mg PO Q4H PRN PRN PRN Reason: Pain Score 4-10 Senna/Docusate Sodium (Senna/Docusate Sodium 1 Tablet) 1 - 2 tablet PO DAILY PRN PRN PRN Reason: Constipation Simethicone (Simethicone 80 Mg Tablet) 80 mg PO PCHS PRN PRN Reason: Indigestion/Stomach pain Sodium Chloride (0.9% Saline Lock 10 Ml Syringe) 5 - 15 ml IV UD PRN PRN Reason: SALINE FLUSH Medical Necessity - Tobacco Use Smoking Status: Never smoker Assessment/Plan All Active Problems (Last Reviewed 07/30/20 @ 08:58 by Nevaeh Jensen) premature rupture of membranes (PPROM) with unknown onset of labor (Acute) 33 weeks gestation of (Acute) History of tetanus, diphtheria, and acellular pertussis booster vaccination (Tdap) (Acute) Supervision of normal first (Acute) (Acute) Exercise-induced asthma (Acute) Congenital hip dysplasia (Acute) ASCUS of cervix with negative high risk HPV (Acute) Pre-conception counseling (Resolved) s/p PPD # 2 1. routine post delivery care 2. breast feeding- support given 3. rh positive 4. rubella immune
== END 2020-08-10 10:30 | disposition home or self-care (01) | DRG 807 ==
LOC: WPOUT 23:32 → WP 23:32
PROVIDERS: Admitting Provider Obstetrics & Gynecology; PCP Family Medicine; Referring Provider Obstetrics & Gynecology; Visit Provider Obstetrics & Gynecology
DX: O60.14X0 Preterm labor third trimester with preterm delivery third trimester, not applicable or unspecified (principal); Z37.0 Single live birth; Z3A.33 33 weeks gestation of pregnancy; Q65.89 Other specified congenital deformities of hip; J45.990 Exercise induced bronchospasm; O99.52 Diseases of the respiratory system complicating childbirth; O70.0 First degree perineal laceration during delivery
CPT/HCPCS: 59025; 59050; 76815; 81002; 84112; 85025; 86850; 86900; 86901; 87081; 87086; 87088; 87426; 99218; J7120; A4216; G0378; J0702; J2405

== ENCOUNTER 2022-08-22 13:29 | Day surgery (SDC) | payer OTHER, SELFPAY ==
[2022-08-22] VITALS (10 sets, daily range): BP systolic 106–141; BP diastolic 73–87; PULSE 95–120; RESP 16–18; TEMP 36.1–37.1; O2SAT 96–100; BMI 25.1
--- NOTE | 2022-08-22 14:08 | ED.VIS.FEGU ---
HPI HPI - Female History of Present Illness Chief Complaint: Vag Bld, Preg Narrative Narrative: Patient presenting today with vaginal bleeding that started yesterday. She states that she is around 6 weeks . Last menstrual period was 07/09/2022. She has had no care up to this point. Yesterday she began to have right lower quadrant pain that radiated to her back and vaginal bleeding that required her to change her pad twice. The bleeding stopped overnight and then came on again at 12 PM this afternoon and she has had a small amount of spotting since. She still reports mild right lower quadrant pain. Patient is G2, P1. She denies any history of ectopic . She denies any urinary symptoms, fever, chills, nausea, and vomiting. PFSH PFSH Medical History Congenital hip dysplasia Exercise-induced asthma Home Medications multivitamin no.47-iron fum 27 mg-folate no.1 1 mg-dha 300 mg capsule (PNV-DHA) 1 cap PO DAILY 02/20/20 [History Last Taken 08/06/20] naproxen 500 mg tablet 500 mg PO BID PRN PRN Pain #30 tabs 08/22/22 [Rx Last Taken Unknown] oxycodone-acetaminophen 5 mg-325 mg tablet (Percocet) 1 tab PO Q6H PRN pain 7 days #10 tabs 08/22/22 [Rx Last Taken Unknown] Allergy/AdvReac Type Severity Reaction Status Date / Time No Known Allergies Allergy Verified 08/22/22 13:32 Family History Father Thyroid disorder Surgical History H/O shoulder surgery History of arthroscopy Social History adopted: No household members: spouse number of children: 0 current occupational status: employed 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 current occupational exposures/hazards: No pets and animals: No history of recent travel: No sexually active: Yes Smoking Status: Never smoker alcohol intake: current alcohol intake frequency: holidays/special occasions only substance use type: does not use seatbelt use: always do you feel safe at home: Yes 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 ROS ROS ED Constitutional Constitutional ED: Denies chills or fever(s) Cardiovascular Cardiovascular: Denies chest pain or palpitations Respiratory/Chest Respiratory/Chest: Denies cough or dyspnea Gastrointestinal Gastrointestinal: Reports abdominal pain; Denies nausea or vomiting Genitourinary Genitourinary ED: Denies dysuria, hematuria or urinary urgency Musculoskeletal Musculoskeletal: Denies arthralgias or myalgias Integumentary Denies abscess, Abrasions or rash Neurologic Neurologic: Denies weakness Psychiatric Psychiatric: Denies anxiety, depression, suicidal ideation or suicidal thoughts EXAM Physical Exam Const Vital Signs: 08/22/22 13:30 08/22/22 15:30 08/22/22 16:26 Temperature 96.9 F L Temperature Source Temporal Pulse Rate 99 95 Respiratory Rate 18 16 16 Blood Pressure 141/76 H 121/87 H Blood Pressure Mean 97 98 Pulse Ox 100 98 Oxygen Delivery Method Room Air Room Air Positive well nourished, well developed and no apparent distress General Appearance ED: well developed HEENT Reports normocephalic and head/scalp atraumatic Mouth ED: Yes moist mucous membranes normal Eyes PERRL and EOMs intact bilaterally Neck full ROM and supple Chest Wall inspection of chest normal Resp normal respiratory effort and clear to auscultation bilaterally Cardio regular rate and regular rhythm GI soft to palpation, non-distended and no masses GI Narrative: Right lower quadrant tenderness to palpation. No peritoneal signs. Palpation: Negative for guarding or rigid Back/Spine normal ROM and normal to inspection Extremity normal to inspection and full ROM Neuro oriented x3, CN's II-XII intact bilaterally, moves all extremities, no focal motor deficits and no sensory deficits noted Sensorium / Orientation: awake and alert Psych mental status grossly normal and thought process normal Skin no rashes or lesions noted and no wounds MDM MDM MDM Narrative Medical decision making narrative: Patient presenting today with right lower quadrant pain as well as vaginal bleeding that started yesterday. She is well-appearing and in no acute distress. She states that the right lower quadrant pain worsened around 12 PM and she is still having a small amount of vaginal bleeding. She thinks she is around 6 weeks . She is G2,P1. Serum quant here is 481, transvaginal ultrasound obtained and is concerning for an ectopic in the right adnexa with free fluid in the cul-de-sac. SPORTS TEAM MANAGER has been consulted and confirms that there is a ectopic rupture on the right side and will be taking patient to the OR in stable condition. She is comfortable with plan. Lab Data Attestation: I reviewed the patient's lab results. Lab results narrative: CBC and CMP unremarkable hCG 481 Labs: Laboratory Results - last 24 hr 08/22/22 08/22/22 08/22/22 14:10 14:10 16:20 WBC 9.9 RBC 5.18 Hgb 14.8 Hct 44.1 MCV 85.1 MCH 28.6 MCHC 33.6 RDW Std Deviation 38.9 RDW Coeff of [place] 12.7 Plt Count 321 MPV 9.6 Immature Gran % (Auto) 0.200 Neut % (Auto) 69.4 Lymph % (Auto) 24.2 Mineral % (Auto) 5.4 Eos % (Auto) 0.4 Baso % (Auto) 0.4 Absolute Neuts (auto) 6.9 Absolute Lymphs (auto) 2.40 Nucleated RBC % 0 Sodium 140 Potassium 3.7 Chloride 108 H Carbon Dioxide 26.0 Anion Gap 6 BUN 7 Creatinine 0.68 Estim Creat Clear Calc 92.11 Est GFR (MDRD) Af Amer 130 Est GFR (MDRD) Non-Af 108 BUN/Creatinine Ratio 10.3 Glucose 95 Calcium 9.6 Total Bilirubin 1.40 H AST 11 L ALT 15 Alkaline Phosphatase 78 Total Protein 7.2 Albumin 4.0 Globulin 3.2 Albumin/Globulin Ratio 1.2 HCG, Quant 481 H Radiography Diagnostic Testing: Clinical Impression(s) from Imaging Studies Obstetrics Ultrasound 08/22/22 14:38 IMPRESSION: No intrauterine . Abnormal right adnexal mass highly suspicious for ectopic . Electronically Signed: Ovi Méndez MD at 16:36 EDT , ADDENDUM: 08/22/22 1650 IMPRESSION: No intrauterine . Abnormal right adnexal mass highly suspicious for ectopic . N.B. : The above Results were Read Back by Ovi Méndez MD to Alberto Shaw MD, and understanding confirmed on 08/22/2022 16:43:23 (ET). Electronically Signed: Ovi Méndez MD at 16:36 EDT , Discharge Plan Dx/Rx/DC Orders Clinical Impression: Hemoperitoneum due to rupture of right tubal ectopic , First trimester , Pelvic pain Disposition Disposition: Acute Care Hospital [facility]
[2022-08-22 14:38] LABS: hCG Titer Quant., Serum 481 mIU/mL (1-3)
--- NOTE | 2022-08-22 14:38 | US_ITS ---
We are attempting to reach an attending provider to discuss findings. An addendum with communication details will be sent when the communication is complete. INDICATION: vaginal bleeding, RLQ pain EXAMINATION: Ultrasound US OB Transvaginal TECHNIQUE: Transabdominal pelvic ultrasound was performed. Grayscale, spectral waveform, and color flow Doppler evaluation of the adnexa. COMPARISON: None. LMP: [07/09/2022 Beta-hC FINDINGS: UTERUS: 7.9 x 4.4 x 4.3 cm. RIGHT OVARY: 2.3 x 1.9 x 1.9 cm. Soft tissue mass in the right adnexa without identifiable pole or cardiac motion, 2.7 x 2.5 x 2.5 cm. LEFT OVARY: 2.7 x 2.5 x 1.7 cm. Normal. FREE FLUID: Moderate free fluid in the cul-de-sac and right adnexa. INTRAUTERINE GESTATIONAL SAC(s) (size/shape): None . YOLK SAC: Not identified POLE: Not identified HEART MOTION: Not detected. US/Transvaginal w/Preg US IMPRESSION: No intrauterine . Abnormal right adnexal mass highly suspicious for ectopic . Electronically Signed: Ovi Méndez MD at 16:36 EDT ,
[2022-08-22 16:24] LABS: Absolute Neutrophil Count 6.9 X10^3/uL (2.0-7.7); Basophil# 0.04 X10^3/uL; Basophil% 0.4 % (0-1); Eosinophil# 0.04 X10^3/uL; Eosinophils% 0.4 % (0-5); Hematocrit 44.1 % (37-47); Hemoglobin 14.8 g/dL (12.0-15.0); Lymphocyte % 24.2 % (19-41); Mean Corp Hgb Conc 33.6 g/dL (32-36); Mean Corpuscular Hgb 28.6 pg (27.0-32.0); Mean Corpuscular Volume 85.1 fL (81-99); Mean Platelet Vol. 9.6 fl (6.2-12.0); Monocyte# 0.53 X10^3/uL; Monocyte% 5.4 % (0-10); NRBC Flagged by Analyzer 0 % (0-5); Neutrophil # 6.87 X10^3/uL (2.7-7.7); Neutrophil % 69.4 % (47-70); Platelet Count 321 K/mm3 (150-450); RBC Distribution Width CV 12.7 % (11.6-14.6); RBC Distribution Width SD 38.9 fl (35.1-43.9); Red Blood Count 5.18 M/mm3 (4.2-5.4); White Blood Count 9.9 K/mm3 (4.4-11.0)
[2022-08-22 16:37] LABS: ALB/GLOB Ratio 1.2 RATIO (0.9-2.4); AST(SGOT) 11 U/L (15-37); Alanine Aminotransfer ALT/SGPT 15 U/L (13-56); Alkaline Phosphatase 78 U/L (45-117); Anion Gap 6 (5-15); BUN 7 mg/dL (7-18); BUN/Creat Ratio 10.3 RATIO (10-20); Calcium,Total 9.6 mg/dL (8.5-10.1); Chloride 108 mmol/L (98-107); Creatinine, Serum 0.68 mg/dL (0.55-1.02); EST Glomerular Filtration Rate 108 mL/min (>60); Est Glom Filt Rate - Afr Amer 130 mL/min (>60); Estimated Creatinine Clearance 92.11 ml/min; Globulin 3.2 g/dL (2.2-4.2); Glucose 95 mg/dL (74-106); Potassium 3.7 mmol/L (3.5-5.1); Protein, Total 7.2 g/dL (6.4-8.2); Sodium Level 140 mmol/L (136-145)
--- NOTE | 2022-08-22 17:12 | HP.PCM.OB_ITS ---
HPI - General HPI Narrative AYO RIVER, is a 31 F who presents with acute onset right lower quadrant pain, started yesterday and increasing today. she is supposed to be 5-6 weeks and on ultrasound shows a ruptured ectopic with moderate free fluid, quant of 458. she has a small amount of vaginal bleeding today, is hemodynami larry stable. she denies any history of pelvic infections or previous ectopic. PFSH PFSH Medical History Congenital hip dysplasia Exercise-induced asthma Home Medications multivitamin no.47-iron fum 27 mg-folate no.1 1 mg-dha 300 mg capsule (PNV-DHA) 1 cap PO DAILY 02/20/20 [History Last Taken 08/06/20] naproxen 500 mg tablet 500 mg PO BID PRN PRN Pain #30 tabs 08/22/22 [Rx Last Taken Unknown] oxycodone-acetaminophen 5 mg-325 mg tablet (Percocet) 1 tab PO Q6H PRN pain 7 days #10 tabs 08/22/22 [Rx Last Taken Unknown] Allergy/AdvReac Type Severity Reaction Status Date / Time No Known Allergies Allergy Verified 08/22/22 13:32 Family History Father Thyroid disorder Surgical History H/O shoulder surgery History of arthroscopy Social History adopted: No household members: spouse number of children: 0 current occupational status: employed 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 Date Name GA/Weeks Outcome Route Bth Weight Gen Labor Lgth Anesthesia Del Locatn Provider FOB 08/08/20 Arabella 33 live - Female nima canas [facility] Delivery Date: 08/08/20 Last Updated by: Tessa Paz PPROM ROS Constitutional Constitutional: Reports systems reviewed and no addt'l complaints, except as documented; Denies as per HPI, change in weight, fatigue, fever(s), malaise, weakness or other Eyes Eyes: Reports systems reviewed and no addt'l complaints, except as documented; Denies as per HPI, change in vision or other ENT HEENT: Reports as per HPI and dizziness; Denies dry mouth, headache(s), loss taste/smell, nasal congestion, nasal discharge, neck pain, sore throat or other Respiratory/Chest Respiratory/Chest: Reports systems reviewed and no addt'l complaints, except as documented Gastrointestinal Gastrointestinal: Reports systems reviewed and no addt'l complaints, except as documented and nausea; Denies vomiting Musculoskeletal Musculoskeletal: Reports systems reviewed and no addt'l complaints, except as documented; Denies back pain or joint pain Neurologic Neurologic: Reports systems reviewed and no addt'l complaints, except as documented Psychiatric Psychiatric: Reports systems reviewed and no addt'l complaints, except as documented Endocrine Endocrinology: Reports systems reviewed and no addt'l complaints, except as documented Hematologic/Lymphatic Hematologic/Lymphatic: Reports systems reviewed and no addt'l complaints, except as documented Vital Signs Vital Signs Vital Signs: 08/22/22 13:30 08/22/22 15:30 08/22/22 16:26 Temperature 96.9 F L Temperature Source Temporal Pulse Rate 99 95 Respiratory Rate 18 16 16 Blood Pressure 141/76 H 121/87 H Blood Pressure Mean 97 98 Pulse Ox 100 98 Oxygen Delivery Method Room Air Room Air Weight Weight: 133 lb Body Mass Index (BMI) 25.1 Physical Exam Const alert, oriented x3 and no apparent distress HEENT normocephalic Head and Scalp: atraumatic Eyes EOMs intact bilaterally and conjunctivae normal Neck full ROM, no lymphadenopathy, supple and thyroid normal General: trachea midline Lymph Lymphatic: no lymphadenopathy noted Resp normal respiratory effort, no retractions, no use of accessory muscles and clear to auscultation bilaterally Cardio regular rhythm GI normal to inspection, nondistended, normoactive bowel sounds, soft to palpation, non-distended and no masses Inspection: Negative for abdominal distention Palpation: tender Back/Spine no CVA tenderness Extremity normal to inspection Skin no rashes or lesions noted Neuro moves all extremities and deep tendon reflexes 2+ bilaterally Motor Exam: clonus absent Psych mental status grossly normal Labs Labs Labs: Blood Type O POSITIVE Antibody Screen NEGATIVE Hct 44.1 % (37-47) Hgb 14.8 g/dL (12.0-15.0) Obstetrics US Rubella IgG Antibody Reactive (Nonreactive) Hep Bs Antigen Non-Reactive (Nonreactive) Chlamydia DNA (MARCELINA) Negative (Negative) Neisseria gonorrhoeae DNA (MARCELINA) Negative (Negative) HIV 1&2 Antibody Non-Reactive (Nonreactive) Glucose 1 Hr 50 gm 112 mg/dL (70-140) Rhogam given: No Assessment & Plan (1) Hemoperitoneum due to rupture of right tubal ectopic : (2) Pelvic pain: (3) Ruptured ectopic : COMMENT: proceed with laparoscopic treatment, possible salpingectomy possible oophorectomy PLAN: Plan After discussing the patient's diagnosis and treatment plan options, patient wishes to proceed with surgical management. I have discussed with the patient the risks, benefits, and alternatives of the procedure which include but are not limited to risks of anesthesia, bleeding, infection, possible damage to bowel, bladder, or surrounding vasculature which could lead to additional surgery to evaluate any complications. Patient agrees to procedure and wishes to proceed. ACOG/uptodate references given for additional information regarding procedure. Charges/Coding Visit Charges Office Visits / Consults: 98857 OV L4 Est (consult in ER and decision made to take for immediate emergency surgery) Procedures Urinary/Genital [id number]: Other Procedure See Report (alert billing needs modifier for going to surgery same day as evaluation in er)
--- NOTE | 2022-08-22 17:15 | PCM.OPRPT ---
Problems Associated Problem List Diagnoses (1) Ruptured ectopic : (2) Hemoperitoneum due to rupture of right tubal ectopic : (3) Pelvic pain: (4) History of unilateral salpingectomy: Report of Operation Date of Procedure: 08/22/22 Pre-Operative Diagnosis: see problem list Post-Operative Diagnosis: same Surgery/Procedure Performed:: laparoscopic right salpingectomy Description of Surgical Findings:: ruptured ectopic right tube Surgeon: Lucille Jacob aegis operations specialist: Elena Banda Type of Anesthesia: General and Local Specimen's removed: tube and ectopic Drains: none Estimated Blood Loss (mL): 50 Fluids Replaced: crystalloid Description of Procedure: Patient was taken in the operating room and was placed under general anesthesia was prepped and draped in normal sterile fashion in the dorsal lithotomy position. Bladder was drained of clear urine and SCDs were on preoperatively. Uterus was sounded and a uterine manipulator was placed after dilating. Attention was then paid to the abdominal portion of the procedure and the umbilicus was elevated with towel clamps and injected with Marcaine and after a 5 mm incision was made and the Veress needle was entered into the abdomen confirmed to be intra-abdominal with a low opening pressure of less than 5 mmHg. Abdomen was insufflated with CO2 gas and a 5 mm optical trocar was placed under direct visualization. A 5 mm port was placed in the right and left lower quadrant ports under direct visualization. Uterus was well visualized and there is noted to be a right ruptured ectopic coming from the right fallopian tube. Blood and clot were seen in the cul-de-sac. left sigmoid adhesions were taken down with the ligasure device. Fallopian tube was elevated and mesosalpinx transected and abnormal portion of the fallopian tube and were removed without complication and then placed in a bag and removed through the 5 mm port site. Liver and upper abdomen were visualized notably within normal limits and no other gross abnormalities were seen in the abdomen. brandy placed over all the operative area. All instruments removed from the abdomen after gas was desufflated. All port sites were closed with 3-0 Monocryl Steri's and op sites were applied. All instruments removed from the vagina and patient was awoken and taken recovery in stable condition. Grafts/Implants Used: none Complications none Admit VTE Documentation VTE Present on Admission: No VTE Mechan Device Prophylaxis: SCD's Procedures Urinary/Genital [id number]: 32113 Treat ectopic lapro w/ salpingectomy
--- NOTE | 2022-08-22 17:17 | DCINST_ITS ---
Discharge Instructions Diet Discharge Diet: No restrictions Activity Discharge Activity: Return to Normal Activity, May Drive (when pain free) and May Shower May resume sexual activity in: 1 week Weight Bearing Status: Full weight bearing Lifting Restrictions: 30 lbs for 2 weeks Dressing / Incision Call your doctor if your incision/area has: Continuous Slow Oozing, Sudden Increased Bleeding, Increased Pain/ Swelling, Increased Redness and Foul Smelling Discharge Call your doctor if you observe: Fever of 101 or Higher, Using more than 1 pad per hour, Shortness of breath, Chest pain and Uncontrolled pain Suture Line Care: Avoid Pulling/Pushing and Avoid Pinching/Bending Remove Dressing in: 1 week (if present) Cleanse incision/area with: Soap & Water and Keep Dressing Clean & Dry Follow Up Care Please Follow Up With: Lucille Jacob MD When: Call to make an appointment with your doctor for a postop visit in 2 weeks Test Results: Test results from this visit will be discussed in further detail at your follow- up appointment, if applicable. Discharge Plan Admission Attending Provider: Lucille Jacob Primary Care Provider: Care Physician,No Primary Discharge Orders/Prescriptions Prescriptions: New oxycodone-acetaminophen [Percocet] 5-325 mg tablet 1 tab PO Q6H PRN (Reason: pain) 7 Days Qty: 10 0RF naproxen [naproxen] 500 mg tablet 500 mg PO BID PRN PRN (Reason: Pain) Qty: 30 1RF No Action PNV-DHA 27 mg iron-1 mg -300 mg capsule 1 cap PO DAILY Referrals / Follow Up: Care Physician,No Primary [Primary Care Provider] - Disposition Disposition (needs filled in before D/C Order can be placed): Home, Self Care
--- NOTE | 2022-08-22 17:45 | FAL_PTH ---
PATIENT: AYO RIVER LOC: [facility] [place] U#:[id number] AGE/SX: 31/ ROOM: RE08/22/[address]: Dr. Lucille Jacob MD : 1990 BED: DIS: 08/22/2022 SPEC #: [id number] RECD: 08/23/22 08:52 STATUS: MOSES MARVEL #: [id number] ROLANDO: 08/22/22 17:[address]: Lucille Jacob DEPT: SURGICAL PATHOLOGY RECD BY: Li Lopez ENTERED: 08/23/22 09:20 SP TYPE: ECTOPIC OTHR DR: No Primary Care Phys Tissues: ECTOPIC PREG Procedures: Surgery Specimen Level IV HEADER OPERATION: Laparoscopic removal ectopic PRE-OP DIAGNOSIS: Ruptured ectopic , hemoperitoneum due to rupture of right tubal ectopic , pelvic pain TISSUE SUBMITTED: Right fallopian tube and ovary ruptured ectopic MICROSCOPIC DIAGNOSIS Right fallopian tube and ovary, excision: Complete cross-section of fallopian tube with no pathologic change. Blood clot material with rare trophoblastic cells and chorionic villi suggestive of ectopic . Fragment of fat with fat necrosis. See comment. AM:anyi 08/24/2022 COMMENT No ovarian tissue is identified. Clinical correlation is suggested. MICROSCOPIC DESCRIPTION Slides are reviewed. GROSS DESCRIPTION Received in fixative is one container labeled with the patient's name and designated right fallopian tube and ovary. The specimen consists of a fallopian tube with fimbrial end measuring 5.5 cm in length and 0.8 cm in diameter. Also present in the specimen container are multiple irregular fragments of reddish-camacho blood clot aggregating to 8.0 x 6.0 x 1.0 cm. parts are not grossly recognized. Turbogenerator Operator sections of the fallopian tube is submitted in cassettes 1 & 2. Turbogenerator Operator sections of the blood clots are submitted in cassettes 3-6. / AM:anyi 08/23/2022 TC:5 CPT: 58269
[2022-08-22] MEDS: Bupivacaine 0.25% 30 ML Vial (17:59)
== END 2022-08-22 19:57 | disposition home or self-care (01) ==
LOC: ED 15:45 → SDC 16:41
PROVIDERS: Physician Assistant; Emergency Provider Emergency Medicine; Visit Provider Obstetrics & Gynecology
PROC: 10T24ZZ Resection of Products of Conception, Ectopic, Percutaneous Endoscopic Approach (ICD-10-PCS; CPT 59150; principal; 2022-08-22 17:30)
DX: O00.101 Right tubal pregnancy without intrauterine pregnancy (principal); O99.611 Diseases of the digestive system complicating pregnancy, first trimester; K66.1 Hemoperitoneum; O99.511 Diseases of the respiratory system complicating pregnancy, first trimester; J45.990 Exercise induced bronchospasm; Z3A.01 Less than 8 weeks gestation of pregnancy
CPT/HCPCS: 59151; 00840; 76817; 80053; 84702; 85025; 88305; 99283; J7030; A4216; J2405

== ENCOUNTER → 2022-11-23 | Outpatient (CLI) | payer OTHER, SELFPAY ==
[2022-11-23 09:21] LABS: hCG Titer Quant., Serum 2934 mIU/mL (1-3)
== END | disposition home or self-care (01) ==
LOC: PAVLAB 08:18
PROVIDERS: Referring Provider Obstetrics & Gynecology; Visit Provider Obstetrics & Gynecology
DX: N91.2 Amenorrhea, unspecified (principal)
CPT/HCPCS: 36415; 84702

== ENCOUNTER → 2022-11-25 | Outpatient (CLI) | payer OTHER, SELFPAY ==
[2022-11-25 09:50] LABS: hCG Titer Quant., Serum 6420 mIU/mL (1-3)
== END | disposition home or self-care (01) ==
LOC: PAVLAB 08:58
PROVIDERS: Referring Provider Registered Nurse; Visit Provider Registered Nurse
DX: N91.2 Amenorrhea, unspecified (principal)
CPT/HCPCS: 36415; 84702

== ENCOUNTER → 2022-12-02 | Outpatient (CLI) | payer OTHER, SELFPAY ==
--- NOTE | 2022-12-02 15:49 | US_ITS ---
STUDY: FIRST TRIMESTER OBSTETRICAL ULTRASOUND REASON FOR EXAM: Female, 32 years old viability LMP: 06/20/2022. TECHNIQUE: Transvaginal TECHNICAL QUALITY: Adequate. PRIOR ULTRASOUND: None. FINDINGS: There is visualization of a single gestational sac in a normal intrauterine position. The mean sac diameter (MSD) measures 1.84 cm, indicating an estimated gestational age (EGA) of 6 weeks, 5 days. The gestational sac shape is within normal limits. There is a visualized yolk sac. The yolk sac measures 4 mm. The placenta is non-visualized. There is visualization of a live embryo. The crown-rump length (CRL) measures 5.2 mm, indicating an estimated gestational age (EGA) of 6 weeks, 3 days. There is demonstrated cardiac activity with a heart rate of 120 bpm. The estimated gestation age (EGA) by LMP is 6 weeks, 3 days. The estimated date of delivery (TESSIE) by LMP is July 25, 2023. The estimated gestation age (EGA) by US is 6 weeks, 4 days. The estimated date of delivery (TESSIE) by US is July 24, 2023. The uterus measures 8.1 cm x 5.6 cm x 4.7 cm. There is no demonstrated uterine fibroid. The cervix is closed. The right ovary measures 3.3 cm x 1.5 cm x 1.7 cm. There is no right ovarian cyst. There is no visualized right adnexal mass or complex lesion. The left ovary measures 3.3 cm x 3.2 cm x 2.3 cm. There is a 2.3 cm x 2.3 cm x 2.1 cm corpus luteum cyst. There is no visualized left adnexal mass or complex lesion. There is no fluid in the cul de sac. US/Transvaginal w/Preg US IMPRESSION: Single live intrauterine gestation with a mean gestational age of 6 weeks and 4 days. 2.3 cm x 2.3 cm x 2.1 cm left corpus luteum cyst. Electronically Signed: Jassi Mcguire MD at 14:11 EDT ,
== END | disposition home or self-care (01) ==
LOC: US 15:48
PROVIDERS: Referring Provider Obstetrics & Gynecology; Visit Provider Obstetrics & Gynecology
DX: Z87.59 Personal history of other complications of pregnancy, childbirth and the puerperium (principal)
CPT/HCPCS: 76817

== ENCOUNTER → 2022-12-06 | Outpatient (CLI) | payer OTHER, SELFPAY ==
[2022-12-08 22:07] LABS: Chlamydia By Nucleic Acid AMP Negative (Negative); Gonococcus By Nucleic Acid AMP Negative (Negative)
[2022-12-10 15:08] LABS: HPV APTIMA, High Risk Negative (Negative)
== END | disposition home or self-care (01) ==
LOC: LABSPEC 16:35
PROVIDERS: Referring Provider Obstetrics & Gynecology; Visit Provider Obstetrics & Gynecology
DX: Z34.90 Encounter for supervision of normal pregnancy, unspecified, unspecified trimester (principal); Z3A.00 Weeks of gestation of pregnancy not specified
CPT/HCPCS: 87086; 87088; 87491; 87591; 87624; 88175; G0145

== ENCOUNTER → 2023-01-06 | Outpatient (CLI) | payer OTHER, SELFPAY ==
[2023-01-06 13:50] LABS: Absolute Lymphocyte Count 2.34 X10^3/uL (0.83-4.51); Absolute Neutrophil Count 5.8 X10^3/uL (2.0-7.7); Basophil# 0.02 X10^3/uL; Basophil% 0.2 % (0-1); Eosinophil# 0.04 X10^3/uL; Eosinophils% 0.5 % (0-5); Hemoglobin 13.7 g/dL (12.0-15.0); Lymphocyte # 2.34 X10^3/ul (0.83-4.51); Lymphocyte % 27.1 % (19-41); Mean Corp Hgb Conc 34.3 g/dL (32-36); Mean Corpuscular Hgb 28.5 pg (27.0-32.0); Mean Corpuscular Volume 83.2 fL (81-99); Mean Platelet Vol. 9.6 fl (6.2-12.0); Monocyte% 4.6 % (0-10); NRBC Flagged by Analyzer 0 % (0-5); Neutrophil % 67.4 % (47-70); Platelet Count 251 K/mm3 (150-450); RBC Distribution Width CV 12.4 % (11.6-14.6); RBC Distribution Width SD 37.5 fl (35.1-43.9); Red Blood Count 4.81 M/mm3 (4.2-5.4); White Blood Count 8.6 K/mm3 (4.4-11.0)
[2023-01-06 15:09] LABS: HIV - WCH Non-Reactive (Nonreactive); Hepatitis B Surface Antigen Non-Reactive (Nonreactive); Hepatitis C Antibody Non-Reactive (Nonreactive); Rubella IgG Reactive (Nonreactive); Syphilis Antibodies Non-reactive
== END | disposition home or self-care (01) ==
LOC: PAVLAB 13:24
PROVIDERS: Referring Provider Obstetrics & Gynecology; Visit Provider Obstetrics & Gynecology
DX: Z34.90 Encounter for supervision of normal pregnancy, unspecified, unspecified trimester (principal)
CPT/HCPCS: 36415; 85025; 86703; 86762; 86780; 86803; 86850; 86900; 86901; 87340

== ENCOUNTER → 2023-04-28 | Outpatient (CLI) | payer OTHER, SELFPAY ==
[2023-04-28 15:19] LABS: Absolute Lymphocyte Count 2.11 X10^3/uL (0.83-4.51); Absolute Neutrophil Count 8.1 X10^3/uL (2.0-7.7); Basophil# 0.04 X10^3/uL; Basophil% 0.4 % (0-1); Eosinophil# 0.08 X10^3/uL; Eosinophils% 0.7 % (0-5); Hematocrit 33.4 % (37-47); Lymphocyte # 2.11 X10^3/ul (0.83-4.51); Lymphocyte % 19.2 % (19-41); Mean Corp Hgb Conc 32.9 g/dL (32-36); Mean Corpuscular Volume 82.1 fL (81-99); Mean Platelet Vol. 9.9 fl (6.2-12.0); Monocyte# 0.68 X10^3/uL; Monocyte% 6.2 % (0-10); NRBC Flagged by Analyzer 0 % (0-5); Neutrophil # 8.05 X10^3/uL (2.7-7.7); Platelet Count 284 K/mm3 (150-450); RBC Distribution Width CV 13.2 % (11.6-14.6); RBC Distribution Width SD 39.5 fl (35.1-43.9); Red Blood Count 4.07 M/mm3 (4.2-5.4)
--- OUTSIDE RECORDS SUMMARY | 2023-04-28 15:29 | XMS RPT_ITS | CCD ---
Author Name Unknown Address [address] [place] [address] Organization [facility] Care Team Providers Care Transfer Pumper Name Role Phone DAVE ESQUIVEL Unavailable Unavailab le Brooklyn Meier Unavailable Unavailable Brooklyn Meier Unavailable Unavailable Encounters Encounter Date Encounter Type Care Provider Facility Start: 10-06-2017 Ambulatory [facility] Procedures Date Procedure Procedure Detail Performing Clinician Start: 02-27-2018 Follow-up visit Payers Date Payer Category Payer Policy ID Unknown Summary Purpose Family History No Family History Records FoundNo Family History Records Found Advance Directives No Advanced Directives Records FoundNo Advanced Directives Records Found Additional Source Comments INFORMATION SOURCE (unrecogn ized section and content) DATE CREATED AUTHOR AUTHOR'S ORGANIZ ATION 04/02/2018 [facility] FOR RECORDS PERTAINING TO PATIENTS WHO ARE OR HAVE BEEN ENROLLED IN A CHEMICAL DEPENDENCY/SUBSTANCEABUSE PROGRAM, SOME INFORMATION MAY BE OMITTED. This clinical summary was aggregated from multiple sources. Caution should be exercised in using it in the provision of clinical care. This summary normalizes information from multiple sources, and as a consequence, information in this document may materially change the coding, format and clinical context of patient data. In addition, data may be omitted in some cases. CLINICAL DECISIONS SHOULD BE BASED ON THE PRIMARY CLINICAL RECORDS. [facility] [employer] provides no warranty or guarantee of the accuracy or completeness of information in this document.
[2023-04-28 16:00] LABS: Glucose Challenge Gest 1H 50g 139 mg/dL (70-140)
[2023-04-28 16:35] LABS: HIV - WCH Non-Reactive (Nonreactive); Syphilis Antibodies Non-reactive
== END | disposition home or self-care (01) ==
LOC: PAVLAB 14:59
PROVIDERS: Referring Provider Obstetrics & Gynecology; Visit Provider Obstetrics & Gynecology
DX: O09.90 Supervision of high risk pregnancy, unspecified, unspecified trimester (principal); Z3A.00 Weeks of gestation of pregnancy not specified
CPT/HCPCS: 36415; 82950; 85025; 86703; 86780

== ENCOUNTER → 2023-05-03 | Outpatient (CLI) | payer OTHER, SELFPAY ==
--- OUTSIDE RECORDS SUMMARY | 2023-05-03 10:17 | XMS RPT_ITS | CCD ---
Author Name Unknown Address [address] [place] [address] Organization [facility] Care Team Providers Care Compliance Examiner Name Role Phone DAVE ESQUIVEL Unavailable Unavailab le Brooklyn Meier Unavailable Unavailable Brooklyn Meier Unavailable Unavailable Encounters Encounter Date Encounter Type Care Provider Facility Start: 10-06-2017 Ambulatory D[facility] Procedures Date Procedure Procedure Detail Performing Clinician Start: 02-27-2018 Follow-up visit Payers Date Payer Category Payer Policy ID Unknown Summary Purpose Family History No Family History Records FoundNo Family History Records Found Advance Directives No Advanced Directives Records FoundNo Advanced Directives Records Found Additional Source Comments INFORMATION SOURCE (unrecogn ized section and content) DATE CREATED AUTHOR AUTHOR'S ORGANIZ ATION 04/02/2018 [facility] FOR RECORDS PERTAINING TO PATIENTS WHO [...] BE BASED ON THE PRIMARY CLINICAL RECORDS. [facility] [employer] provides no warranty or guarantee of the accuracy or completeness of information in this document.
[2023-05-03 10:46] LABS: Glucose GTT-Gestation. Fasting 89 mg/dL (<105)
[2023-05-03 11:51] LABS: Glucose GTT-Gestational 1 Hr 115 mg/dL (<190)
[2023-05-03 13:07] LABS: Glucose GTT-Gestational 2 Hr 117 mg/dL (<165)
[2023-05-03 13:35] LABS: Glucose GTT-Gestational 3 Hr 107 L (<145)
== END | disposition home or self-care (01) ==
LOC: LAB 09:53
PROVIDERS: Referring Provider Nurse Practitioner Women's Health; Visit Provider Nurse Practitioner Women's Health
DX: Z13.1 Encounter for screening for diabetes mellitus (principal)
CPT/HCPCS: 36415; 82951; 82952

== ENCOUNTER 2023-06-21 01:35 | Inpatient (IN) | payer OTHER, SELFPAY ==
[2023-06-20 23:12] VITALS: BMI 29.0
--- OUTSIDE RECORDS SUMMARY | 2023-06-20 23:13 | XMS RPT_ITS | CCD ---
Author Name Unknown Address [address] [place] [address] Organization [facility] Care Team Providers Care Gig Tender Name Role Phone DAVE ESQUIVEL Unavailable Unavailab le Brooklyn Meier Unavailable Unavailable Brooklyn Meier Unavailable Unavailable Encounters Encounter Date Encounter Type Care Provider Facility Start: 10-06-2017 Ambulatory [facility] Procedures Date Procedure Procedure Detail Performing Clinician Start: 02-27-2018 Follow-up visit Payers Date Payer Category Payer Policy ID Unknown Summary Purpose Family History No Family History Records FoundNo Family History Records Found Advance Directives No Advanced Directives Records FoundNo Advanced Directives Records Found Additional Source Comments INFORMATION SOURCE (unrecogn ized section and content) DATE CREATED AUTHOR AUTHOR'S ORGANIZ ATION 04/02/2018 [facility] FOR RECORDS PERTAINING TO PATIENTS WHO ARE [...] BE BASED ON THE PRIMARY CLINICAL RECORDS. [facility] [employer] provides no warranty or guarantee of the accuracy or completeness of information in this document.
[2023-06-20 23:19] VITALS: TEMP 37
[2023-06-20 23:20] VITALS: PULSE 85; O2SAT 96
[2023-06-20 23:21] VITALS: BP 121/79; PULSE 85
[2023-06-21] VITALS (61 sets, daily range): BP systolic 94–137; BP diastolic 54–81; PULSE 56–145; RESP 18; TEMP 36.4–37.3; O2SAT 93–100
[2023-06-21 00:03] LABS: ROM Internal Control Test YES-OK TO RESULT pt. (Internal QC); ROM Patient Test Negative (Negative)
--- OUTSIDE RECORDS SUMMARY | 2023-06-21 01:40 | XMS RPT_ITS | CCD ---
Author Name Unknown Address [address] [place] [address] Organization [facility] Care Team Providers Care Veterinary Practice Manager Name Role Phone DAVE ESQUIVEL Unavailable Unavailab le Brooklyn Meier Unavailable Unavailable Brooklyn Meier Unavailable Unavailable Encounters Encounter Date Encounter Type Care Provider Facility Start: 10-06-2017 Ambulatory [facility] Procedures Date Procedure Procedure Detail Performing Clinician Start: 02-27-2018 Follow-up visit Payers Date Payer Category Payer Policy ID Unknown Summary Purpose Family History No Family History Records FoundNo Family History Records Found Advance Directives No Advanced Directives Records FoundNo Advanced Directives Records Found Additional Source Comments INFORMATION SOURCE (unrecogn ized section and content) DATE CREATED AUTHOR AUTHOR'S ORGANIZ ATION 04/02/2018 [facility] FOR RECORDS PERTAINING [...] BE BASED ON THE PRIMARY CLINICAL RECORDS. [facility] [employer] provides no warranty or guarantee of the accuracy or completeness of information in this document.
--- NOTE | 2023-06-21 01:53 | HP.PCM.OB_ITS ---
HPI - General General Date of Admission: 06/21/23 HPI Narrative AYO RIVER, is a 32 F who presents in labor 35 weeks made change to 4 cm 80 -2. no vb lof admits good fm. ctx every 2-3 minutes. she has had a history of PPROM at 33 weeks with last . Maternal Data Information TESSIE Calculator Estimated Delivery Date Method Current WG Current Estimate 07/25/23 LMP (Certain) 35w 1d PFSH PFSH Medical History Congenital hip dysplasia Exercise-induced asthma Hemoperitoneum due to rupture of right tubal ectopic Ruptured ectopic Home Medications multivitamin no.47-iron fum 27 mg-folate no.1 1 mg-dha 300 mg capsule (PNV-DHA) 1 cap PO DAILY 12/01/22 [History Last Taken Unknown] Allergy/AdvReac Type Severity Reaction Status Date / Time No Known Allergies Allergy Verified 06/20/23 23:17 Family History Father Thyroid disorder Congenital hip dysplasia Surgical History H/O shoulder surgery History of arthroscopy History of unilateral salpingectomy Social History adopted: No household members: spouse and children number of children: 1 current occupational status: employed 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 current occupational exposures/hazards: No pets and animals: No history of recent travel: Yes ([place]) out of state: Yes out of country: No sexually active: Yes Smoking Status: Never smoker alcohol intake: current alcohol intake frequency: holidays/special occasions only details: not while substance use type: does not use well-balanced diet: daily or most days caffeine: Yes Type: coffee Number of servings: 1 eating out: 1-3 times/week during the past year weight has: remained stable what type of physical activity do you participate in: walking frequency: 1-2 times per week duration: 30-45 minutes/day davi/spiritism: Temple seatbelt use: always do you feel safe at home: Yes 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 Date Name GA/Weeks Outcome Route Bth Weight Infant Gen Labor Lgth Anesthesia Del Avis Provider FOB Unknown july 2022 ectopic 08/08/20 Arabella 33 live - Female none [facility] Delivery Date: 08/08/20 Last Updated by: Tessa Paz PPROM Visit Details Expected Delivery Route/Plan Labor Preferences- CB/BF classes: no labor support person: Wes labor intervention preferences: [] pain management options preferred: limited cut cord/dad catch: cord : yes PP control planned: discussed/mirena IUD discussed possible routes of delivery and associated risks: [] special requests: [] Plans Covid status: declined Flu vaccine: given Tdap vaccine: given Rhogam: na LARC form signed: yes movement and labor precautions reviewed. Problem list reviewed and updated with the most current plan of care details and appropriate orders placed. Relevant counseling for the gestational age provided. Continue routine care and follow up unless otherwise noted in visit notes/problem list details OB Flowsheet Initial Weight: 133 lb Date -?-?-?-?-?-?-?-?-?-?-?-?- EGA Weight BP Urine Prot -?-?-?-?-?-?-?-?-?-?-?-?- Glucose FHR FuHt Pres Dilation -?-?-?-?-?-?-?-?-?-?-?-?- Effaced St Visit Note 12/06/22 -?-?-?-?-?-?-?-?--?-?-?-?- 7w 0d 133 lb (+0 oz) 113/74 -?-?-?-?-?-?-?-?-?-?-?-?- 120 -?-?-?-?-?-?-?-?-?-?-?-?- SM- crl cons wit h lmp 01/06/23 -?-?-?-?-?-?-?-?-?-?-?-?- 11w 3d 135 lb 6 oz (+2 lb 6 oz) 113/73 Negative -?-?-?-?-?-?-?-?-?-?-?-?- Negative 160 -?-?-?-?-?-?-?-?-?-?-?-?- SM- no vb santosh ng doing well 02/03/23 -?-?-?-?-?-?-?-?-?-?-?-?- 15w 3d 135 lb 6 oz (+2 lb 6 oz) 110/70 -?-?-?-?-?-?-?-?-?-?-?-?- 150 -?-?-?-?-?-?-?-?-?-?-?-?- SM- no vb adeeli ng flu vaccine today 03/03/23 -?-?-?-?-?-?-?-?-?-?-?-?- 19w 3d 138 lb (+5 lb) 106/73 Negative -?-?-?-?-?-?-?-?-?-?-?-?- Negative 150 -?-?-?-?-?-?-?-?-?-?-?-?- SM- no vb lof co constipation 03/31/23 -?-?-?-?-?-?-?-?-?-?-?-?- 23w 3d 143 lb 8 oz (+10 lb 8 oz) 110/70 Negative -?-?-?-?-?-?-?-?-?-?-?-?- Negative 23 -?-?-?-?-?-?-?-?-?-?-?-?- 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 rocael fm. 28 week labs discussed. no concerns today 04/28/23 -?-?-?-?-?-?-?-?-?-?-?-?- 27w 3d 147 lb (+14 lb) 115/77 Negative -?-?-?-?-?-?-?-?-?-?-?-?- Negative 154 27 -?-?-?-?-?-?-?-?-?-?-?-?- MH-No Vb, LOF. G omiryam FM. 28 wk labs pending. Larc. 05/12/23 -?-?-?-?-?-?-?-?-?-?-?-?- 29w 3d 149 lb (+16 lb) 101/68 Negative -?-?-?-?-?-?-?-?-?-?-?-?- Negative 145 29 -?-?-?-?-?-?-?-?-?-?-?-?- SM- no vb lof go od fm no regular ctx 05/26/23 -?-?-?-?-?-?-?-?-?-?-?-?- 31w 3d 151 lb 8 oz (+18 lb 8 oz) 103/72 Negative -?-?-?-?-?-?-?-?-?-?-?-?- Negative 140 32 -?-?-?-?-?-?-?-?-?-?-?-?- KW- no vb/lof/ct x. good fm. 06/09/23 -?-?-?-?-?-?-?-?-?-?-?-?- 33w 3d 154 lb (+21 lb) 122/76 Negative -?-?-?-?-?-?-?-?-?-?-?-?- Negative 135 33 -?-?-?-?-?-?-?-?-?-?-?-?- SM- no vb lof go od fm no regular ctx discussed hemorrhoid compalints 06/20/23 -?-?-?-?-?-?-?-?-?-?-?-?- 35w 0d 155 lb 6 oz (+22 lb 6 oz) 113/78 Negative -?-?-?-?-?-?-?-?-?-?-?-?- Negative 135 36 Cephalic -?-?-?-?-?-?-?-?-?-?-?-?- SM- no vb lof go od fm no regular ctx NST FHR Rate Baby A Baseline: 140 Variability:: Moderate Accelerations:: 15 x 15 Decelerations:: None NST Reactive:: Yes FHR Category:: Category I Uterine Activity:: q 2-3 ROS Constitutional Constitutional: Reports systems reviewed and no addt'l complaints, except as documented ENT HEENT: Reports systems reviewed and no addt'l complaints, except as documented Cardiovascular Cardiovascular: Reports systems reviewed and no addt'l complaints, except as documented Respiratory/Chest Respiratory/Chest: Reports systems reviewed and no addt'l complaints, except as documented Gastrointestinal Gastrointestinal: Reports systems reviewed and no addt'l complaints, except as documented and nausea; Denies abdominal pain Genitourinary Genitourinary: Reports systems reviewed and no addt'l complaints, except as documented, contractions Details: present and frequency (regular ) and movement Details: present Musculoskeletal Musculoskeletal: Reports systems reviewed and no addt'l complaints, except as documented Integumentary Integumentary: Reports as per HPI Neurologic Neurologic: Reports systems reviewed and no addt'l complaints, except as documented Endocrine Endocrinology: Reports systems reviewed and no addt'l complaints, except as d ocumented Vital Signs Vital Signs Vital Signs: 06/20/23 23:20 06/20/23 23:20 06/20/23 23:21 Temperature Temperature Source Pulse Rate 85 Blood Pressure 121/79 H BP Systolic 121 BP Diastolic 79 Pulse Ox 96 06/20/23 23:21 06/20/23 23:19 06/20/23 23:19 Temperature 98.6 F Temperature Source Temporal Pulse Rate 85 Blood Pressure BP Systolic BP Diastolic Pulse Ox 06/21/23 00:03 06/21/23 00:03 Temperature Temperature Source Pulse Rate 95 Blood Pressure BP Systolic BP Diastolic Pulse Ox 97 Weight Weight: 154 lb Body Mass Index (BMI) 29.0 Physical Exam Const alert, oriented x3 and healthy appearing Constitutional Narrative: uncomfortable with contractions HEENT normocephalic and moist oral mucous membranes Head and Scalp: atraumatic Neck full ROM, no lymphadenopathy, supple and thyroid normal General: trachea midline Thyroid: thyroid normal Lymph Lymphatic: no lymphadenopathy noted Chest inspection of chest normal Resp normal respiratory effort Cardio regular rate GI normal to inspection, nondistended, normoactive bowel sounds, soft to palpation and non-tender Inspection: gravid external exam normal Bimanual Exam - Vag & Uterus: uterus non-tender Manual OB Exam: estimated gestational size appropriate, presentation cephalic, dilated, effaced and station -2 Extremity normal to inspection General Extremity: Negative for edema Skin no rashes or lesions noted Neuro deep tendon reflexes 2+ bilaterally Motor Exam: strength 5/5 throughout and clonus absent Psych mental status grossly normal Labs Labs Labs: Blood Type O POSITIVE Antibody Screen NEGATIVE Hct 33.4 % (37-47) L Hgb 11.0 g/dL (12.0-15.0) L Obstetrics Ultrasound Syphilis Total Ab Non-reactive Rubella IgG Antibody Reactive (Nonreactive) Hep Bs Antigen Non-Reactive (Nonreactive) Hepatitis C Antibody Non-Reactive (Nonreactive) Chlamydia DNA (MARCELINA) Negative (Negative) N.gonorrhoeae DNA (MARCELINA) Negative (Negative) HIV 1&2 Antibody Non-Reactive (Nonreactive) Glucose 1 Hr 50 gm 139 mg/dL (70-140) Gest Glucose Tolerance MG/DL Rhogam given: No Assessment & Plan (1) History of delivery: COMMENT: PPROM at 33 weeks, nl cervical length at anatomy scan. (2) Abnormal glucose level: COMMENT: 3 hr GTT-normal (3) General counseling and advice for contraceptive management: COMMENT: IUD after 6 wk pp visit (4) Supervision of high-risk : QUALIFIERS: Trimester: second trimester Qualified Code(s): O09.92 - Supervision of high risk , unspecified, second trimester COMMENT: PRR , TESSIE 07/25/23 girl PC Arabella Wes (5) : QUALIFIERS: Weeks of gestation: 35 weeks Qualified Code(s): Z3A.35 - 35 weeks gestation of COMMENT: declined ntd genetic & carrier testing, nl anatomy (6) labor: PLAN: Plan Patient presents in PTL, admit and exp management, give ampicillin and bmz course, exp management. Pain management: minimal intervention preferred. GBS unknown give ampicillin, add azithromycin if ROM. Management of any complications: ptl I have reviewed the [facility] and made any clinically relevant updates.
[2023-06-21] MEDS: Betamethasone/Betamethasone 30 MG/5 ML Vial 12 MG IM (02:05)
[2023-06-21] MEDS: Ampicillin 2 GM in 0.9% Normal Saline (100mL MB+) 100 ML IV (02:05)
[2023-06-21 02:09] LABS: Absolute Lymphocyte Count 2.88 X10^3/uL (0.83-4.51); Absolute Neutrophil Count 11.1 X10^3/uL (2.0-7.7); Basophil# 0.06 X10^3/uL; Basophil% 0.4 % (0-1); Eosinophil# 0.06 X10^3/uL; Eosinophils% 0.4 % (0-5); Hematocrit 34.9 % (37-47); Hemoglobin 11.2 g/dL (12.0-15.0); Lymphocyte # 2.88 X10^3/ul (0.83-4.51); Lymphocyte % 19.2 % (19-41); Mean Corp Hgb Conc 32.1 g/dL (32-36); Mean Corpuscular Hgb 24.8 pg (27.0-32.0); Mean Corpuscular Volume 77.2 fL (81-99); Mean Platelet Vol. 11.6 fl (6.2-12.0); Monocyte# 0.83 X10^3/uL; Monocyte% 5.5 % (0-10); NRBC Flagged by Analyzer 0 % (0-5); Neutrophil # 11.13 X10^3/uL (2.7-7.7); Neutrophil % 74.1 % (47-70); Platelet Count 247 K/mm3 (150-450); RBC Distribution Width CV 14.2 % (11.6-14.6); RBC Distribution Width SD 39.6 fl (35.1-43.9); Red Blood Count 4.52 M/mm3 (4.2-5.4)
[2023-06-21] MEDS: Lactated Ringers 1,000 ML 50 ML IV (02:35)
[2023-06-21] MEDS: fentaNYL 100 MCG/2 ML Ampul IV ×3 (02:39→10:10)
[2023-06-21 03:14] LABS: Syphilis Antibodies Non-reactive
[2023-06-21] MEDS: 0.9% Saline Lock 10 ML Syringe IV ×4 (05:15→21:01)
[2023-06-21] MEDS: Ampicillin 1,000 MG in 0.9% Normal Saline (50mL MB+) 50 ML 150 MG IV ×3 (06:24→14:05)
--- NOTE | 2023-06-21 07:40 | PCM.PN.BLA ---
Progress Note Coping well with contractions current tracing: FHT: 130 Moderate variability reactive no decelerations category I tracing [place]: 2-3 Contractions strong Membranes: intact SVE:5/90/0 A/P: Continue with position changes [place] at 0200 this am Epidural per anesthesia Ampicillin for labor AROM when appropriate Anticipate Dr Jacob in room with exam and aware of above assessment and agrees with plan of care Assessment & Plan Assessment/Plan (1) labor: (2) History of delivery: (3) Abnormal glucose level: (4) General counseling and advice for contraceptive management: (5) Supervision of high-risk : QUALIFIERS: Trimester: second trimester Qualified Code(s): O09.92 - Supervision of high risk , unspecified, second trimester (6) : QUALIFIERS: Weeks of gestation: 35 weeks Qualified Code(s): Z3A.35 - 35 weeks gestation of Procedures Urinary/Genital [id number]: No Charge
[2023-06-21 14:18] LABS: ROM Internal Control Test YES-OK TO RESULT pt. (Internal QC)
[2023-06-21 14:19] LABS: ROM Patient Test POSITIVE (Negative)
--- NOTE | 2023-06-21 14:58 | PCM.PN.BLA ---
Progress Note Coping well with contractions current tracing: FHT: 125 Moderate variability reactive occasional variable decelerations category II tracing [place]: 3-5 minute Contractions Membranes:SROM at 1400 ROM + positive-Forebag ruptured at 1455 SVE:/-1 reviewed tracing abnormalities since last note: collaboration with at this time for Cat II FHT tracing. Agreed with breaking forebag and proceeding with plan A/P: Continue with position changes Epidural per anesthesia if requested Ampicillin for GBS prophylaxis, labor Azithromycin 500mg IV Anticipate Dr Jacob aware of above assessment and agrees with plan of care Assessment & Plan Assessment/Plan (1) labor: (2) History of delivery: (3) Abnormal glucose level: (4) General counseling and advice for contraceptive management: (5) Supervision of high-risk : QUALIFIERS: Trimester: second trimester Qualified Code(s): O09.92 - Supervision of high risk , unspecified, second trimester (6) : QUALIFIERS: Weeks of gestation: 35 weeks Qualified Code(s): Z3A.35 - 35 weeks gestation of Multi Select Codes Urinary/Genital Urinary/Genital CPT Codes: No Charge
[2023-06-21] MEDS: Azithromycin 500 MG in Dextrose 5%-Water (250mL Bag) 250 ML 250 MG IV (15:09)
[2023-06-21] MEDS: Ondansetron 4 MG/2 ML Vial IV (15:29)
[2023-06-21] MEDS: Oxytocin 10 UNITS/ML Vial IM (17:42)
[2023-06-21] MEDS: Oxytocin 15 Units/NS 250ml 15 UNITS/250 ML IV.SOLN 83 UNITS IV (17:45)
[2023-06-21] MEDS: Lidocaine 1% (20 ml mdv) 20 ML Vial INFILT (18:09)
--- NOTE | 2023-06-21 18:09 | OP.PCM_ITS ---
Assessment & Plan (1) Vaginal delivery: COMMENT: KW 35.1 IAL girl (2) labor: (3) Abnormal glucose level: COMMENT: 3 hr GTT-normal (4) General counseling and advice for contraceptive management: COMMENT: IUD after 6 wk pp visit (5) Supervision of high-risk : QUALIFIERS: Trimester: second trimester Qualified Code(s): O09.92 - Supervision of high risk , unspecified, second trimester COMMENT: PRR , TESSIE 07/25/23 girl PC Arabella Wes (6) : QUALIFIERS: Weeks of gestation: 35 weeks Qualified Code(s): Z3A.35 - 35 weeks gestation of COMMENT: declined ntd genetic & carrier testing, nl anatomy Maternal Data Information TESSIE Calculator Estimated Delivery Date Method Current WG Current Estimate 07/25/23 LMP (Certain) 35w 1d Final TESSIE: 07/25/23 Final TESSIE Source: US >20 weeks Gestational age: 35.1 weeks Vaginal Delivery Maternal Presentation Maternal Presentation: Active Labor Maternal Presentation: Progressed well to 10cm dilated and made steady progress with effective maternal pushing. Audible heart rate decelerations and Dr Jacob called in for possible kiwi delivery. Dr Jacob arrived to room when and stood by incase she was needed for emergency Delivered the head in JESUS presentation. The head was delivered atraumatically and a loose nuchal cord x 2 was identified and was easily reduced over the 's head. The anterior and posterior shoulders delivered without complication followed by the rest of the infant and the infant was placed on the maternal abdomen. Delayed cord clamping was employed for approximately 3 minutes. Cord was clamped and cut and gentle traction was applied to the cord and the placenta delivered spontaneously. Immediately following, it was noted to be intact with a 3 vessel cord. The perineum and vagina were inspected and noted to have a first degree laceration which was repaired with 3-0 Vicryl in the usual fashion. Bladder drained via straight cath for 200cc clear urine. EBL was 200cc. Patient and tolerated delivery well. Apgars 8/9. Dr Jacob notified of vaginal delivery and orders reviewed. Physician agrees with current plan of care. Operative Information Date of Procedure: 06/21/23 Pre-Operative Diagnosis: See AP comments Post-Operative Diagnosis: Same Surgery / Procedure Performed: Spontaneous Vaginal Delivery desk assistant #1: Teresa Moss Type of Anesthesia: Local with 1% Lidocaine Estimated Blood Loss: 200 Time of Delivery: 17:39 Findings Presentation: JESUS Amniotic Membrane Rupture Type: Spontaneous Amniotic Fluid Description: Clear Placental Delivery Description: Spontaneous Placenta Disposition: [facility] Cord Vessel Description: 3 Vessels Cord Entanglement: Around neck x 2, loose A Gender: Female (1 minute): 8 (5 minute): 9 Delayed Cord Clamping: Yes Post Vaginal Delivery Medications Given After Delivery: IV Pitocin and IM Pitocin Episiotomy Description: None Laceration: 1st degree Complication Complications: None Multi Select Codes Urinary/Genital Urinary/Genital CPT Codes: 52185 Vaginal Delivery [facility]
[2023-06-21] MEDS: Naproxen 500 MG Tablet PO (18:36)
[2023-06-21] MEDS: Acetaminophen 500 MG Tablet 1000 MG PO (19:28)
--- NOTE | 2023-06-21 21:22 | NURSING ---
2105- This RN giving report to Pearl Noyola RN who will be resuming care at this time.
[2023-06-22 00:12] VITALS: BP 105/61; PULSE 99; RESP 16; O2SAT 96
[2023-06-22] MEDS: Acetaminophen 500 MG Tablet 1000 MG PO ×3 (01:25→17:31)
[2023-06-22 03:46] VITALS: BP 114/75; PULSE 75; RESP 16; O2SAT 98
[2023-06-22] MEDS: Naproxen 500 MG Tablet PO ×2 (06:32→13:51)
--- NOTE | 2023-06-22 07:49 | PCM.PN.OB ---
Subjective Subjective Patient doing well without complaints. Tolerating PO. Ambulating and voiding without difficulty. Pumping to feed, baby in SCN due to low glucose but improvingl. Denies chest pain, shortness of breath, calf pain/swelling, fevers, chills, lightheadedness. Objective Data Objective Data Vital Signs: Vital Signs Temp Pulse Resp BP Pulse Ox O2 Del Method 98.5 F 75 16 114/75 98 Room Air 06/21/23 21:00 06/22/23 03:46 06/22/23 03:46 06/22/23 03:46 06/22/23 03:46 06/22/23 03:46 Oxygen Delivery Method Room Air Weight: 154 lb Body Mass Index (BMI) 29.0 Intake & Output: Intake and Output for Last 24 Hours 06/20/23 06/21/23 06/22/23 23:59 23:59 23:59 Intake Total 1231.66 / 1231.66 Output Total 200 / 200 Balance 1031.66 / 1031.66 Lab / Micro Data 06/21/23 02:00 Labs: Laboratory Results - last 24 hr 06/21/23 14:00: Vag Amniotic Fld Detect POSITIVE H Micro: Microbiology 06/20/23 23:30 Genital vaginal Group B Streptococcus (PCR) - Final Physical Exam Const alert and oriented x3 HEENT normocephalic Eyes PERRL Neck full ROM Resp normal respiratory effort GI soft to palpation GI Narrative: FF below U Assessment & Plan (1) Vaginal delivery: COMMENT: KW 35.1 IAL girl PLAN: Plan s/p PPD # 1 1. routine post delivery care 2. breast feeding- support given 3. rh positive 4. rubella immune
[2023-06-22 08:03] VITALS: BP 118/78; PULSE 60; RESP 16; TEMP 36.8; O2SAT 98
[2023-06-22 13:36] VITALS: BP 121/80; PULSE 83; RESP 16; TEMP 37.3; O2SAT 97
[2023-06-22 17:36] VITALS: BP 113/81; PULSE 90; RESP 16; TEMP 37.1; O2SAT 100
--- NOTE | 2023-06-24 09:44 | CASEMGMT ---
Social Work Assessment Labor and Delivery Unit Patient Address: [address] [place] [address] Phone number: [phone] Date of Referral: 06/21/23 Time of Referral:? 220 Referred By: Lucille Jacob Date of Intervention: ??06/24/23 Time of Intervention:? 914 Reason for Referral:? past substance use, schizoaffective, anxiety, depression Sw completed chart review and acknowledges social work consult due to paternal mental health history. Sw presented to bedside and introduced self to mother of baby (JULIENNE- Teresa) and father of baby (FOChantal- Wes). Sw explained reason for sw involvement and completed psychosocial assessment. History obtained from: medical records, MOB and FOB Household composition: Currently residing in the home is GIANNA ROBINS, their 2.5 year old daughter, Arabella, and baby when ready for discharge. Patient's parent/guardian status:? ?JULIENNE states that she and GIANNA have been together for 4 years. They met while attending [employer] together. No concerns of domestic violence or intimate partner violence. Medical History: ?JULIENNE is 32 year old female who is 3, para 1-now 2 following labor and delivery of . JULIENNE received routine care during with [facility]. JULIENNE presented to hospital and delivered baby via vaginal delivery on 06/21/23 at 35 weeks gestation. Following delivery baby was transferred to [facility] ([facility]) due to hypoglycemia. Baby girl, named Jhonathan, was born weighing 6lb 4oz and her apgars were 8 and 9 at one and five minutes of life, respectfully. While in SCN baby has been making progress with her feeds, and today has required phototherapy to help with hyperbilirubinemia. Due to patient's progress they are anticipating her readiness for discharge tomorrow. JULIENNE states that baby will be followed by Dr. Andrade for pediatrics. JULIENNE states that she is breast feeding/ pumping and it is going well. Educational Status:?Both parents graduated from high school. JULIENNE went on to obtain her doctorate in physical therapy. GIANNA is currently in college to obtain his organizational leadership degree. No concerns with reading, learning or comprehending what is learned. Financial Status: GIANNA is not employed at this time as he is in school. JULIENNE works for [employer] and is able to take 8-10 weeks off of work. Infant Supplies:??Parents have obtained everything they need for baby, including: car seat, safe sleep space, clothes, diapers and wipes. MOB states that she has not been able to find their bottles at home and asked if they would be able to obtain a bottle just to use at home until they are able to go to the store to purchase more. Sw asked [facility] staff if they have a bottle to provide to MOB and they have a Parents Choice bottle they are able to give to MOB. Childcare/Caregiver(s):? MOB and FOB are the primary caregivers to baby. Transportation:?? No barriers. Programs/Agencies Involved: ???FOB is connected to mental health supports. Parents are over income for financial assistance provided by community agencies. Children Services/Legal Issues:???No history of involvement, no issues or concerns warranting referral to be made at this time. Behavioral Health Issues: ??Mental Health History:?MOB denies mental health history. FOB states that he does have significant mental health history. FOChantal has been diagnosed with schizoaffective disorder, anxiety, and depression and does have substance use history. FOB states that he is connected to mental health supports, both counseling at [facility] and a psychiatrist at the [place]. FOB states that he believes his mental health symptoms are managed and are not impacting his every day life. FOB states that he is also prescribed psychotropic medications to help with his mental health symptoms. ?? Substance Use History:?MOB denies substance use prior to and during . FOB states that he does have histroy of substance use, but has been sober for many years, has not used substances since becoming a parent. ? Family History:?Parents deny any family history of addiction issues or significant mental health history. ? Drug Screens: ??No drug screens observed in chart review. Family/Social Stressors:? Parents deny any issues or stressors at this time. Their 2 year old also required hospitalization in the NICU so they are not stressed out about baby requiring to be in the SCN. Support Systems: MOB states that they have a lot of family support from both sides of the family. Depression/Shaken Baby/Safe Sleeping:? Sw reviewed signs and symptoms of baby blues and depression with MOB and FOB. Sw provided literature for parents to review should either of them struggle with any symptoms during this journey. Sw explained to parents that GIANNA can also experience symptoms of baby blues and depression/ anxiety due to his mental health history. Parents express understanding. Sw educated parents on shaken baby prevention and ABCs of safe sleep. Parents expressed understanding. ASSESSMENT:? MOB is now discharged from labor and delivery unit, baby remains admitted to [facility]. Parents both present for sw assessment, however they were quiet and somewhat reserved. FOB was not open to discuss his mental health and substance use history at length. FOB was found to be laying on the couch and ready to take a nap. FOB did engage in assessment after being prompted by sw and MOB. Parents appear to be managing their mental health symptoms appropriately, FOB is connected with counseling and psychiatry. PLAN:? Baby has made progress towards identified treatment goals and is almost medically ready for discharge. Tentative discharge is scheduled for tomorrow. ?No other services requested or indicated. David Joyner, SCHOOL CLEANER, CONCRETE PILE [employer]IVER OPERATOR
== END 2023-06-22 19:04 | disposition home or self-care (01) | DRG 807 ==
LOC: WPOUT 01:38 → WP 09:51
PROVIDERS: Obstetrics & Gynecology; Admitting Provider Advanced Practice Midwife; Referring Provider Advanced Practice Midwife; Visit Provider Advanced Practice Midwife
DX: O42.913 Preterm premature rupture of membranes, unspecified as to length of time between rupture and onset of labor, third trimester (principal); Z37.0 Single live birth; J45.990 Exercise induced bronchospasm; O69.81X0 Labor and delivery complicated by cord around neck, without compression, not applicable or unspecified; O70.0 First degree perineal laceration during delivery; O76 Abnormality in fetal heart rate and rhythm complicating labor and delivery; Z3A.35 35 weeks gestation of pregnancy
CPT/HCPCS: 59025; 59050; 84112; 85025; 86780; 86850; 86900; 86901; 87081; 87653; 99221; J7120; A4216; G0378; J0290; J0702; J2405

== ENCOUNTER → 2024-09-19 | Outpatient (CLI) | payer OTHER, SELFPAY ==
[2024-09-24 09:08] LABS: HPV APTIMA, High Risk Negative (Negative)
== END | disposition home or self-care (01) ==
LOC: LABSPEC 16:30
PROVIDERS: Referring Provider Advanced Practice Midwife; Visit Provider Advanced Practice Midwife
DX: Z12.4 Encounter for screening for malignant neoplasm of cervix (principal)
CPT/HCPCS: 87624; 88175; G0145